=== PATIENT | female | born 1955 | race Caucasian/White ===

== ENCOUNTER 2022-06-19 12:22 | Emergency (ER) | payer MEDICARE, SELFPAY ==
[2022-06-19 12:27] VITALS: BP 146/83; PULSE 81; RESP 14; TEMP 36.4; O2SAT 99; BMI 18.8
--- NOTE | 2022-06-19 12:49 | CRLHL7_ITS ---
For Patients: As a result of the Century Cures Act, medical imaging exams and procedure reports are released immediately into your electronic medical record. You may view this report before your referring provider. If you have questions, please contact your health care provider. Indication: Head injury Comparison: None available Technique: Multiple sequential axial images from the foramen magnum to the vertex were obtained without IV contrast. Findings: No evidence of mass effect, midline shift, or extra-axial fluid collection. No evidence of space-occupying lesion or intracranial hemorrhage. No evidence of cortical-based area of infarction. Ventricles and sulci are appropriate for patient age. Basal cisterns are patent. Visualized portions of the orbits, paranasal sinuses, and mastoid air cells are unremarkable. Impression: No acute intracranial process. Please note that all CT scans at this facility use dose modulation, iterative reconstruction, and/or weight-based dosing when appropriate to reduce radiation dose to as low as reasonably achievable. Dictated by Christopher Suero MD @ 06/19/2022 1:42:47 PM (Electronically Signed)
--- NOTE | 2022-06-19 12:52 | ED_ITS ---
HPI - General Adult General Time Seen by Provider: 12:52 Date Seen: 06/19/22 Chief complaint: Head Injury/Pain Stated complaint: Hit head Time Seen by Provider: 06/19/22 12:22 Source: patient and family History of Present Illness HPI narrative: 58-year-old female presents to the emergency room after head injury. Yesterday about 4:00 a.m. in the afternoon she hit her left forehead against a doorknob. She is bending over to hook [place] to her dog and hit her head fairly hard when she was getting back up. She did not have loss of consciousness. She does have a headache in her left forehead. She has had nausea since that time but has not vomited. She has been able to eat. She does have some blurriness in her left eye which is chronic due to a left cataract. She reports prominent fatigue and just feeling off.Prior to hitting her head she was feeling fine yesterday. No previous history of head injury. She is not on any anticoagulation or antiplatelet treatment. She reports no other recent illness or injury. She denies other focal neurologic symptoms including numbness, weakness, tingling. No speech difficulties. Related Data Home Medications Medication Instructions Recorded Confirmed calcium carbonate 600 mg calcium 600 mg PO DAILY 06/19/22 06/19/22 (1,500 mg) tablet (Calcium) diltiazem HCl 120 mg 120 mg PO BID 06/19/22 06/19/22 capsule,extended release 24 hr potassium chloride 20 mEq 20 meq PO DAILY 06/19/22 06/19/22 tablet,extended release Allergies Allergy/AdvReac Type Severity Reaction Status Date / Time cephalexin Allergy Unknown Shortness Verified 06/19/22 12:41 of Breath ciprofloxacin Allergy Unknown Verified 06/19/22 12:41 codeine Allergy Unknown Verified 06/19/22 12:41 nitrofurantoin Allergy Unknown Verified 06/19/22 12:41 [From Macrobid] acetaminophen AdvReac Unknown Palpitation Verified 06/19/22 12:39 s levofloxacin [From Levaquin] AdvReac Unknown Nausea Verified 06/19/22 12:41 pseudoephedrine AdvReac Unknown Tachycardia Verified 06/19/22 12:41 sulfamethoxazole AdvReac Unknown Palpitation Verified 06/19/22 12:41 [From Septra] s trimethoprim [From Septra] AdvReac Unknown Palpitation Verified 06/19/22 12:41 s Review of Systems Narrative: She reports feeling well other than the issues above. She has a history of SVT but none recently. [facility] Medical History (Updated 06/19/22 @ 13:51 by Adolph Acevedo MD) Anxiety Hypertension Hypokalemia Osteoporosis Psoriasis SVT (supraventricular tachycardia) Surgical History History of salpingo-oophorectomy Family History (Updated 06/19/22 @ 12:59 by Adolph Acevedo MD) Other Alzheimer's dementia Coronary artery disease High blood pressure High cholesterol Hypokalemia Social History Smoking Status: Former smoker What tobacco products do you use: cigarettes Smoking quit date/years: >15 years ago How often do you have a drink containing alcohol: monthly or less AUDIT-C Alcohol total score: 1 Non-prescribed substance use: denies use Exam Narrative: Exam Narrative: She is alert and appears in no distress. She gives her own history. Speech is normal. Inspection of her head shows no obvious signs of trauma. She does have mild soft tissue swelling in her very lateral left forehead just adjacent to her left methodist. Palpation here is tender as well. I do not palpate a bony abnormality in this area. Palpation of the rest of her head is nontender. Neck is nontender. Pinnas external canals and TMs are normal. Eyes are normal. Pupils are equal round and reactive to light. Extraocular movements are full. Visual benton are intact. There is no facial asymmetry. Oropharynx is normal. Tongue is midline. Neck is supple without mass or adenopathy. Respirations are clear. Cardiovascular S1, S2, regular rate and rhythm. Strength testing in upper and lower extremities is full and symmetric bilaterally. She has 5/5 strength in shoulder flexion and extension, elbow flexion and extension, wrist flexion and extension, finger extension, [employer] supervisor strength bilaterally. She has 5/5 strength in hip flexion, knee flexion and extension, ankle dorsiflexion and plantar flexion. Vugghf-huxb-snidup is accurate. Const: Vital Signs, click to edit/add: Vital Signs - 24 hr 06/19/22 12:27 Temperature 97.6 F Pulse Rate [Pulse Oximeter] 81 Respiratory Rate 14 Blood Pressure [Ri ght Upper Arm] 146/83 H Pulse Oximetry 99 Oxygen Delivery Me thod Room Air Documenting provider has reviewed patient's vital signs: yes Course Course Hospital Course: Patient remained neurologically and symptomatically stable through the emergency department course Vital Signs Vital signs: Initial Vital Signs Temperature 97.6 F 06/19/22 12:27 Temperature Source Temporal Artery Scan 06/19/22 12:27 Pulse Rate 81 06/19/22 12:27 Pulse Rhythm 06/19/22 12:27 Respiratory Rate 14 06/19/22 12:27 Blood Pressure 146/83 H 06/19/22 12:27 Blood Pressure Mean 104 06/19/22 12:27 Blood Pressure Position Sitting 06/19/22 12:27 Pulse Oximetry 99 06/19/22 12:27 Oxygen Delivery Method 06/19/22 12:27 Vital Signs Temperature 97.6 F 06/19/22 12:27 Pulse Rate 81 06/19/22 12:27 Respiratory Rate 14 06/19/22 12:27 Blood Pressure 146/83 H 06/19/22 12:27 Pulse Oximetry 99 06/19/22 12:27 Oxygen Delivery Method 06/19/22 12:27 Temperature 97.6 F 06/19/22 12:27 Pulse Rate 81 06/19/22 12:27 Respiratory Rate 14 06/19/22 12:27 Blood Pressure 146/83 H 06/19/22 12:27 Pulse Oximetry 99 06/19/22 12:27 Oxygen Delivery Method 06/19/22 12:27 Medical Decision Making Differential Diagnosis Differential Diagnosis: Head trauma with intracranial hemorrhage, skull fracture, concussion Discharge Plan Discharge Clinical Impression: Concussion without loss of consciousness Additional Instructions: Resume activity as tolerated. You are most likely to be symptomatic with vigorous exercise such as pickle ball. Gradually resume vigorous activity to see if you tolerated. Your symptoms should improve over the next week. If you are not back to normal in 1 week you should see your doctor for recheck Activity Level: Activity as Tolerated Discharge Diet: Regular Prescriptions: No Action diltiazem HCl 120 mg capsule,extended release 24hr 120 mg PO BID Label Comments: TAKE 1 CAPSULE (120 MG) BY MOUTH 2 TIMES DAILY. potassium chloride 20 mEq tablet extended release 20 meq PO DAILY Label Comments: TAKE 1 TABLET (20 MEQ) BY MOUTH ONCE DAILY WITH A MEAL. calcium carbonate [Calcium 600] 600 mg calcium (1,500 mg) tablet 600 mg PO DAILY Follow Up/Referrals: Provider,Not a Local [Primary Care Provider] - Stand Alone Forms: [facility] Info Instructions
== END 2022-06-19 14:06 | disposition home or self-care (01) ==
PROVIDERS: Emergency Provider Family Medicine
DX: S06.0X0A Concussion without loss of consciousness, initial encounter (principal); S02.91XA Unspecified fracture of skull, initial encounter for closed fracture; W22.8XXA Striking against or struck by other objects, initial encounter
CPT/HCPCS: 70450; 99283

== ENCOUNTER 2022-07-07 12:53 | Emergency (ER) | payer MEDICARE, SELFPAY ==
[2022-07-07 13:06] VITALS: BP 155/98; PULSE 101; RESP 20; TEMP 36.8; O2SAT 96; BMI 18.8
[2022-07-07] MEDS: 0.9 % SODIUM CHLORIDE 1000 ml 1,000 ML IV (13:40)
[2022-07-07 13:48] LABS: Basophils Percent Auto 0.3 % (0.0-3.0); Eosinophils Percent Auto 0.5 % (0.0-7.0); Hematocrit 41.4 % (33.0-51.0); Hemoglobin* 13.6 gm/dL (12.0-16.0); Immature Granulocytes Abs Auto 0.02 K/uL (0.00-0.30); Lymphocytes Percent Auto 10.3 % (20-44); Mean Corpuscular HGB Conc 33 gm/dL (32-36); Mean Corpuscular Hemoglobin 29 pg (26-34); Mean Corpuscular Volume 88 fL (80-100); Monocytes Percent Auto 8.7 % (0.0-11.0); Platelet Count* 393 K/uL (140-440); Red Blood Count 4.73 m/uL (4.00-5.20); White Blood Count* 11.01 K/uL (4.50-11.00)
--- NOTE | 2022-07-07 13:52 | ED_ITS ---
HPI - General Adult General Date Seen: 07/07/22 Chief complaint: Sore Throat Stated complaint: Food poisoning/sore throat Time Seen by Provider: 07/07/22 13:10 Source: patient, family and RN notes reviewed Mode of arrival: ambulatory Limitations: no limitations History of Present Illness HPI narrative: Brooke is a 60-year-old female coming to the ER at request of her clinic for concern of possible dehydration. She has not been feeling very well and has had multitude of symptoms recently. What ultimately he was getting her to go to the clinic today was some sore throat and voice hoarseness as well as concern for food poisoning with diarrhea. As far as her respiratory symptoms, she has been sick for a couple of weeks, had cough and cold symptoms, had a harsh cough. She thinks she may have ultimately gotten it from a granddaughter. She was doing better but then Monday up in [facility] she started feeling worse. Seems like the cough was worsening, sore throat for worsening and voice hoarseness worsening. She does endorse postnasal drainage. She does not necessarily have a fever with that. She does have a history of seasonal allergies and has Flonase but has not really been using it consistently with this. On Monday up in [place], they stopped at [employer] and almost immediately after eating, she developed diarrhea. She has had diarrhea through the night. Last episode maybe 10:00 a.m. this morning. There is a little blood on her underwear once but overall no gross bloody diarrhea. They were worried about E coli thinking this might be food poisoning. Related Data Home Medications Medication Instructions Recorded Confirmed calcium carbonate 600 mg calcium 600 mg PO DAILY 06/19/22 07/07/22 (1,500 mg) tablet (Calcium) diltiazem HCl 120 mg 120 mg PO BID 06/19/22 07/07/22 capsule,extended release 24 hr potassium chloride 20 mEq 20 meq PO DAILY 06/19/22 07/07/22 tablet,extended release Allergies Allergy/AdvReac Type Severity Reaction Status Date / Time cephalexin Allergy Unknown Shortness Verified 07/07/22 13:19 of Breath ciprofloxacin Allergy Unknown Verified 07/07/22 13:19 codeine Allergy Unknown Verified 07/07/22 13:19 nitrofurantoin Allergy Unknown Verified 07/07/22 13:19 [From Macrobid] acetaminophen AdvReac Unknown Palpitation Verified 07/07/22 13:19 s levofloxacin [From Levaquin] AdvReac Unknown Nausea Verified 07/07/22 13:19 pseudoephedrine AdvReac Unknown Tachycardia Verified 07/07/22 13:19 sulfamethoxazole AdvReac Unknown Palpitation Verified 07/07/22 13:19 [From Septra] s trimethoprim [From Septra] AdvReac Unknown Palpitation Verified 07/07/22 13:19 s [facility] Medical History (Updated 07/07/22 @ 15:05 by Frances Aguilar MD) Anxiety Hypertension Hypokalemia Osteoporosis Psoriasis SVT (supraventricular tachycardia) Surgical History History of salpingo-oophorectomy Family History (Updated 06/19/22 @ 12:59 by Adolph Acevedo MD) Other Alzheimer's dementia Coronary artery disease High blood pressure High cholesterol Hypokalemia Social History (Updated 06/19/22 @ 13:51 by Adolph Acevedo MD) Smoking Status: Former smoker What tobacco products do you use: cigarettes Smoking quit date/years: >15 years ago How often do you have a drink containing alcohol: monthly or less AUDIT-C Alcohol total score: 1 Non-prescribed substance use: denies use Exam Const: Vital Signs, click to edit/add: Vital Signs - 24 hr 07/07/22 13:06 Temperature 98.2 F Pulse Rate [Pulse Oximeter] 101 H Respiratory Rate 20 Blood Pressure [Le ft Upper Arm] 155/98 H Pulse Oximetry 96 Documenting provider has reviewed patient's vital signs: yes Common normals: no apparent distress, oriented x3, no limitations, healthy appearing, alert and well nourished General appearance: cooperative, comfortable and well kempt Nutritional appearance: thin HENMT: Common normals: normocephalic, head/scalp atraumatic, hearing grossly normal bilaterally, external ears normal, EAC's normal, TM's normal bilaterally (maybe slight fluid behind the right tympanic membrane but no infection), external nose normal, nasal mucous membranes and turbinates normal, moist oral mucous membranes, oropharynx normal, dentition normal and gingiva normal Head and scalp: normocephalic and atraumatic Nose: external nose normal and nasal mucous membranes and turbinates normal External ear: external ears normal External auditory canal: EAC's normal Tympanic membrane: TM's normal bilaterally (maybe slight fluid behind the right tympanic membrane but no infection) Throat: posterior oropharynx normal and uvula midline Other: Able speak in complete sentences but voice is hoarse Eye: Common normals: PERRL, EOMs intact bilaterally, conjunctivae normal and no scleral icterus Conjunctiva: conjunctiva(e) normal Pupil: PERRL Neck & C-Spine: Common normals: full ROM, no lymphadenopathy, supple, no meningeal signs, no JVD and thyroid normal Thyroid: thyroid normal Resp: Common normals: normal respiratory effort, no retractions, no use of accessory muscles and clear to auscultation bilaterally Auscultation: clear to auscultation bilaterally Cardio: Common normals: no JVD, regular rate, regular rhythm, S1 normal heart sound, S2 normal heart sound, no gallops, no clicks and no murmurs Rate: regular rate Rhythm: regular rhythm Heart sounds: S1 normal and S2 normal GI: Common normals: Normal to inspection, nondistended, normoactive bowel sounds present, soft to palpation, non-tender, no hepatosplenomegaly and no masses Palpation: soft and no hepatosplenomegaly Neuro: Common normals: oriented x3 Sensorium/orientation: alert Meningeal signs: no meningeal signs Psych: Appearance: well kempt Course Course Hospital Course: We will initiate IV fluids, get basic labs for patient. I do not think she needs any imaging. Respiratory symptoms could be viral, could be allergic. Have discussed doing chest x-ray and sinus imaging with a CT. She does not feel like she needs this and thus will not order. I do support her decision to not do imaging based on her clinical exam. We did discuss the concern for definite food-borne illness here with the diarrhea. If it is something like E coli or community acquired C difficile, antibiotics would not be recommended to be initiated and could actually worsenen things. She has not been on any recent antibiotics and no history of C difficile colitis but it is still possible to pick this up in the environment. Antibiotic certainly could worsen any diarrheal illness. Reevaluation(s) Reevaluation #1: Have reviewed with patient her labs and went over them. Her white count is minimally elevated, C reactive protein elevated. Electrolytes are looking good. She did have to urinate after the L of fluid and did have a watery diarrheal stool. Did again stress that I think we need to refrain from antibiotics at this time. For her laryngitis and sinus type symptoms, recommend initiating Flonase and Zyrtec or Claritin daily to treat for possible allergen induced symptoms. We did discuss testing for COVID and influenza and she would like to have this done. We will do this on her way out to notify her if they come back positive. We will send her with stool collection studies. Time: 15:02 Vital Signs Vital signs: Initial Vital Signs Temperature 98.2 F 07/07/22 13:06 Temperature Source Temporal Artery Scan 07/07/22 13:06 Pulse Rate 101 H 07/07/22 13:06 Respiratory Rate 20 07/07/22 13:06 Blood Pressure 155/98 H 07/07/22 13:06 Blood Pressure Mean 117 07/07/22 13:06 Blood Pressure Position Sitting 07/07/22 13:06 Pulse Oximetry 96 07/07/22 13:06 Vital Signs Temperature 98.2 F 07/07/22 13:06 Pulse Rate 101 H 07/07/22 13:06 Respiratory Rate 20 07/07/22 13:06 Blood Pressure 155/98 H 07/07/22 13:06 Pulse Oximetry 96 07/07/22 13:06 Temperature 98.2 F 07/07/22 13:06 Pulse Rate 101 H 07/07/22 13:06 Respiratory Rate 20 07/07/22 13:06 Blood Pressure 155/98 H 07/07/22 13:06 Pulse Oximetry 96 07/07/22 13:06 Medical Decision Making Lab Data Lab results reviewed: Yes I reviewed the patient's lab results Labs: Lab Results 07/07/22 07/07/22 Range/Units 13:36 13:36 WBC 11.01 H (4.50-11.00) K/uL RBC 4.73 (4.00-5.20) m/uL Hgb 13.6 (12.0-16.0) gm/dL Hct 41.4 (33.0-51.0) % MCV 88 (80-100) fL MCH 29 (26-34) pg MCHC 33 (32-36) gm/dL RDW Coeff of Jeny 13.0 (11.5-15.5) % Plt Count 393 (140-440) K/uL Neut % (Auto) 80.0 H (42.0-72.0) % Lymph % (Auto) 10.3 L (20-44) % [place] % (Auto) 8.7 (0.0-11.0) % Eos % (Auto) 0.5 (0.0-7.0) % Baso % (Auto) 0.3 (0.0-3.0) % Neut # (Auto) 8.80 H (1.7-7.0) K/uL Lymph # (Auto) 1.10 (0.90-2.90) K/uL [place] # (Auto) 1.00 H (0.00-0.90) K/UL Eos # (Auto) 0.10 (0.00-0.50) K/uL Baso # (Auto) 0.00 (0.00-0.30) K/uL Abs Immat Gran (auto) 0.02 (0.00-0.30) K/uL Sodium 138 (135-149) mmol/L Potassium 3.6 (3.6-5.1) mmol/L Chloride 102 (96-114) mmol/L Carbon Dioxide 27 (20-32) mmol/L BUN 7 (7-30) mg/dL Creatinine 0.5 (0.5-1.5) mg/dL Estimated Creat Clear 46.27 Estimated GFR 102 ml/min Glucose 104 (60-115) mg/dL Calcium 9.3 (8.4-10.6) mg/dL C-Reactive Protein 3.9 H (0.5-1.0) mg/dL Critical Care Time Critical Care Time Critical Care Time: No Discharge Plan Discharge Clinical Impression: Laryngitis, Acute diarrhea Condition: Stable Instructions: Laryngitis (ED), Acute Diarrhea (ED), Nutrition Tips for Relief of Diarrhea (ED) Additional Instructions: For your sore throat, hoarse voice and sinus symptoms, do recommend initiating your Flonase that you have at home. Would also recommend trialing Zyrtec or Claritin daily. I do not recommend starting antibiotics in the setting of this acute diarrhea. For the diarrhea, do not recommend antidiarrheals at this time as it can allow infectious agents to actually stay with in the colon/gut. Follow the handout on nutrition tips, do recommend small frequent sips of clear liquids to stay hydrated while you are awake. Collect the stool studies and bring back. If you are worsening from either ear symptoms, develops severe abdominal pain, acute bloody diarrhea, fever or vomiting, do need to be re- evaluated. Activity Level: Activity as Tolerated Diet Detail: Follow handout Prescriptions: No Action diltiazem HCl 120 mg capsule,extended release 24hr 120 mg PO BID Label Comments: TAKE 1 CAPSULE (120 MG) BY MOUTH 2 TIMES DAILY. potassium chloride 20 mEq tablet extended release 20 meq PO DAILY Label Comments: TAKE 1 TABLET (20 MEQ) BY MOUTH ONCE DAILY WITH A MEAL. calcium carbonate [Calcium 600] 600 mg calcium (1,500 mg) tablet 600 mg PO DAILY Follow Up/Referrals: Mono Garcia MD [Primary Care Provider] - Stand Alone Forms: [facility] Info Instructions
[2022-07-07 13:54] LABS: Slide Review Reflex No
[2022-07-07 14:02] LABS: Chloride* 102 mmol/L (96-114); Potassium* 3.6 mmol/L (3.6-5.1); Sodium* 138 mmol/L (135-149)
[2022-07-07 14:05] LABS: Carbon Dioxide* 27 mmol/L (20-32); Creatinine* 0.5 mg/dL (0.5-1.5); Est. Creatinine Clearance* 46.27; Estimated Glomerular Filt Rate 102 ml/min
[2022-07-07 14:06] LABS: Blood Urea Nitrogen* 7 mg/dL (7-30); Calcium* 9.3 mg/dL (8.4-10.6); Glucose* 104 mg/dL (60-115)
[2022-07-07 14:08] LABS: C Reactive Protein* 3.9 mg/dL (0.5-1.0)
[2022-07-07 16:17] LABS: PCR FLU A Negative PCR FLU A (Negative); PCR FLU B Negative PCR FLU B (Negative)
[2022-07-07 16:22] LABS: SARS PCR* Negative SARS-CoV-2 (Negative)
== END 2022-07-07 15:36 | disposition home or self-care (01) ==
PROVIDERS: Emergency Provider Family Medicine; PCP Family Medicine
DX: R19.7 Diarrhea, unspecified (principal); J04.0 Acute laryngitis
CPT/HCPCS: 36415; 80048; 85025; 86140; 87631; 96360; 99284; J7030

== ENCOUNTER 2022-07-09 09:12 | Outpatient (REF) | payer MEDICARE, SELFPAY ==
[2022-07-09 10:35] LABS: C.Difficile Negative (Negative); CDIFFEPI 027 Presumptive Negative (Negative)
[2022-07-18 23:31] LABS: Ova and Parasite, Fecal Negative (Negative)
== END 2022-07-09 09:13 | disposition home or self-care (01) ==
LOC: NPINS 09:12
PROVIDERS: PCP Family Medicine; Visit Provider Family Medicine
DX: Z20.822 Contact with and (suspected) exposure to COVID-19 (principal); R19.7 Diarrhea, unspecified
CPT/HCPCS: 87045; 87046; 87177; 87209; 87427; 87493

== ENCOUNTER 2022-08-13 15:39 | Emergency (ER) | payer MEDICARE, SELFPAY ==
[2022-08-13 15:49] VITALS: BP 178/88; PULSE 100; TEMP 37.1; O2SAT 96; BMI 18.3
--- NOTE | 2022-08-13 16:27 | CRLHL7_ITS ---
For Patients: As a result of the Cures Act, medical imaging exams and procedure reports are released immediately into your electronic medical record. You may view this report before your referring provider. If you have questions, please contact your health care provider. INDICATION: Fall. COMPARISON: None. TECHNIQUE: Three views of the right wrist. FINDINGS: No focal soft tissue abnormality. Normal alignment. Joint space preserved. No fracture. IMPRESSION: No acute fracture or malalignment. Dictated by Josh Rojas MD @ 08/13/2022 5:12:39 PM (Electronically Signed)
--- NOTE | 2022-08-13 16:28 | ED.GENADULT ---
HPI - General Adult General Chief complaint: Fall/Minor Trauma Stated complaint: Right wrist injury Time Seen by Provider: 08/13/22 15:58 History of Present Illness HPI narrative: This 66-year-old female was playing pickle ball and fell onto her outstretched right hand. She has pain in her right wrist. She did not report any other injury. She did not hit her head or have loss of consciousness. Related Data Home Medications Medication Instructions Recorded Confirmed calcium carbonate 600 mg calcium 600 mg PO DAILY 06/19/22 07/07/22 (1,500 mg) tablet (Calcium) diltiazem HCl 120 mg 120 mg PO BID 06/19/22 07/07/22 capsule,extended release 24 hr potassium chloride 20 mEq 20 meq PO DAILY 06/19/22 07/07/22 tablet,extended release Allergies Allergy/AdvReac Type Severity Reaction Status Date / Time cephalexin Allergy Unknown Shortness Verified 07/07/22 13:19 of Breath ciprofloxacin Allergy Unknown Verified 07/07/22 13:19 codeine Allergy Unknown Verified 07/07/22 13:19 nitrofurantoin Allergy Unknown Verified 07/07/22 13:19 [From Macrobid] acetaminophen AdvReac Unknown Palpitation Verified 07/07/22 13:19 s levofloxacin [From Levaquin] AdvReac Unknown Nausea Verified 07/07/22 13:19 pseudoephedrine AdvReac Unknown Tachycardia Verified 07/07/22 13:19 sulfamethoxazole AdvReac Unknown Palpitation Verified 07/07/22 13:19 [From Septra] s trimethoprim [From Septra] AdvReac Unknown Palpitation Verified 07/07/22 13:19 s Review of Systems Status of ROS: Reports: 10 or more systems reviewed and unremarkable except as noted in History and below Narrative: Constitutional: No fevers, no weight gain or loss. Eyes: No discharge. No vision changes. HENT: No congestion, no sore throat, no ear pain. Cardiovascular: No chest pain, no palpitations. Respiratory: No shortness of breath, no wheezes, no cough. Gastrointestinal: No abdominal pain, no vomiting, no diarrhea. Genitourinary: No dysuria, no hematuria. Musculoskeletal: Right wrist injury as described above. Skin: No rashes, no pruritis. Neurological: No dizziness, weakness, sensory change, speech change. Endo/Heme/Allergies: No bruising or bleeding. No polydipsia. Pysch: no suicidality, no anxiety, no insomnia. All other systems reviewed and are negative. [facility] Medical History (Updated 08/13/22 @ 17:20 by Yifan Cisneros MD) Anxiety Hypertension Hypokalemia Osteoporosis Psoriasis SVT (supraventricular tachycardia) Surgical History History of salpingo-oophorectomy Family History (Updated 06/19/22 @ 12:59 by Adolph Acevedo MD) Other Alzheimer's dementia Coronary artery disease High blood pressure High cholesterol Hypokalemia Social History (Updated 06/19/22 @ 13:51 by Adolph Acevedo MD) Smoking Status: Former smoker What tobacco products do you use: cigarettes Smoking quit date/years: >15 years ago How often do you have a drink containing alcohol: monthly or less How often do you have six or more drinks on one occasion: Never AUDIT-C Alcohol total score: 1 Non-prescribed substance use: denies use Exam Narrative: Exam Narrative: Constitutional: Well-developed, well-nourished, no acute distress. HEENT: Normocephalic, atraumatic. Neck: Normal range of motion. Nontender. Supple. Heart: Intact distal pulses. Lungs: No chest discomfort. No wheezes, rhonchi, or rales. Abdomen: Nontender. Back: Normal range of motion. Extremities: Diffuse left wrist pain with minimal swelling and associated decreased range of motion. There is no obvious deformity. Skin: Intact. No rash. Warm. No erythema or pallor. Neurologic: No altered sensation. No weakness. Alert and oriented. Psychiatric: No suicidality. No anxiety or depression. No insomnia. Nursing notes and vitals signs are reviewed. Const: Vital Signs, click to edit/add: Vital Signs - 24 hr 08/13/22 15:49 Temperature 98.7 F Pulse Rate [Left P ulse Oximeter] 100 Blood Pressure [Ri ght Upper Arm] 178/88 H Pulse Oximetry 96 Oxygen Delivery Me thod Room Air Course Vital Signs Vital signs: Initial Vital Signs Temperature 98.7 F 08/13/22 15:49 Temperature Source Temporal Artery Scan 08/13/22 15:49 Pulse Rate 100 08/13/22 15:49 Blood Pressure 178/88 H 11/19/22 15:49 Blood Pressure Mean 118 08/13/22 15:49 Blood Pressure Position Sitting 08/13/22 15:49 Pulse Oximetry 96 08/13/22 15:49 Oxygen Delivery Method 08/13/22 15:49 Vital Signs Temperature 98.7 F 08/13/22 15:49 Pulse Rate 100 08/13/22 15:49 Blood Pressure 178/88 H 08/13/22 15:49 Pulse Oximetry 96 08/13/22 15:49 Oxygen Delivery Method 08/13/22 15:49 Temperature 98.7 F 08/13/22 15:49 Pulse Rate 100 08/13/22 15:49 Blood Pressure 178/88 H 08/13/22 15:49 Pulse Oximetry 96 08/13/22 15:49 Oxygen Delivery Method 08/13/22 15:49 Medical Decision Making MDM Narrative Medical decision making narrative: This patient comes in with injury to her right wrist. X-ray images show no sign of fracture or dislocation. The patient received a wrist splint and is encouraged to increase activity as tolerated. Imaging Data XR R Wrist: Radiologist's impression: No acute fracture or malalignment. Discharge Plan Discharge Clinical Impression: Right wrist sprain Patient Disposition: Home, Self-Care Condition: Stable Additional Instructions: Wear splint as needed. Use [id number] medicines as needed and directed. Follow up with MD or return if worsening. Prescriptions: No Action diltiazem HCl 120 mg capsule,extended release 24hr 120 mg PO BID Label Comments: TAKE 1 CAPSULE (120 MG) BY MOUTH 2 TIMES DAILY. potassium chloride 20 mEq tablet extended release 20 meq PO DAILY Label Comments: TAKE 1 TABLET (20 MEQ) BY MOUTH ONCE DAILY WITH A MEAL. calcium carbonate [Calcium 600] 600 mg calcium (1,500 mg) tablet 600 mg PO DAILY Follow Up/Referrals: Mono Garcia MD [Primary Care Provider] - Stand Alone Forms: [employer] Info Instructions
== END 2022-08-13 17:29 | disposition home or self-care (01) ==
PROVIDERS: Emergency Provider Emergency Medicine Emergency Medical Services; PCP Family Medicine
DX: S63.501A Unspecified sprain of right wrist, initial encounter (principal); Y93.73 Activity, racquet and hand sports
CPT/HCPCS: 29125; 73110; 99283; 99284

== ENCOUNTER 2023-08-10 10:57 | Outpatient (RCR) | payer MEDICARE, SELFPAY | END 2023-09-29 14:40 | disposition home or self-care (01) | PROVIDERS: PCP Family Medicine; Visit Provider Dietitian, Registered | DX: M25.561 Pain in right knee (principal); M25.562 Pain in left knee; M62.81 Muscle weakness (generalized); Z51.89 Encounter for other specified aftercare | CPT/HCPCS: 97110; 97161 ==

== ENCOUNTER 2025-02-02 10:26 | Emergency (ER) | payer BC, SELFPAY ==
--- OUTSIDE RECORDS SUMMARY | 2025-02-02 10:28 | XMS_ITS ---
Author Name Interface, [employer] Address [address] [address] [facility] Address [address] [address] Care Team Providers Care Physician/Internist Name Role Phone Shey Lowery Unavailable Unavailable Allergies and Adverse Reactions Medication/Group Name Reaction Severity Date Allerfed (pseudoephedrine) 0 11/28/2022 cephalexin 11/28/2022 codeine 11/28/2022 Septra 11/28/2022 acetaminophen 11/28/2022 Macrobid 11/28/2022 ciprofloxacin 11/28/2022 levofloxacin 11/28/2022 Plan Date Type Value 12/20/2022 APPOINTMENT POST OP 30 MIN 12/12/2022 APPOINTMENT SURGERY 2 HR 12/02/2022 APPOINTMENT LAB 10 MIN 12/02/2022 APPOINTMENT NEW PT CONSULT 6 0 MIN 11/29/2022 APPOINTMENT NEW PT CONSULT 6 0 MIN 11/29/2022 APPOINTMENT LAB 10 MIN Reason for Visit POST OP 30 MIN Encounters Date Name 11/29/2022 Anxiety disorder 11/29/2022 Chronic sinusitis 11/29/2022 Elevated CA 125 11/29/2022 Essential HTN 11/29/2022 Hypokalemia 11/29/2022 Osteoporosis 11/29/2022 PUD 11/29/2022 Pelvic mass 11/29/2022 Psoriasis 11/29/2022 SVT Immunizations Date Name Route Dose Instructions Refusal Reason Stat us Flu vaccine - Adult Comp leted Other Completed Medications Date Name Route Dose Frequency Instructions Start Date End Date Status Diltiazem Oral 24 hr Cap active Ketoconazole Shampoo 1 % 2-3 times a week a ctive Alprazolam Oral max 3 tabs per day active Calcium Carbonate Oral active Conjugated Estrogens Vaginal Cream 0.625 mg/g twice weekly active Tacrolimus Topical Ointment 0.1 % QD to eyelid active Problems Diagnosis Status Date of Diagnosi s Pelvic mass Active Elevated CA 125 Active PUD Active Essential HTN Active Chronic sinusitis Active Anxiety disorder Active Hypokalemia Active Osteoporosis Active SVT Active Psoriasis Active Vital Signs Date Type Value 11/29/2022 Heart Beat 93.00 11/29/2022 Oxygen Saturation 97.00 11/29/2022 Body Temperature 98.70 11/29/2022 Respiratory Rate 16.00 11/29/2022 Intravascular Systolic 136 11/29/2022 Intravascular Diastolic 74 11/29/2022 Weight 115.00 11/29/2022 Height 67.20 11/29/2022 BMI 17.90 11/29/2022 BSA 1.60 11/29/2022 Pain Scale 0.00 Notes Section * [employer]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 Patient ? Referring Physician: Kirill Davis MD?? Primary GYNOncologist: Shey Lowery (Gynecological/Oncology) Date of Service: 11/29/2022?? Reason for Consult: I was asked by Dr. Davis to see Brooke Johnson in regard to a recent diagnosis of a pelvic massand elevated CA 125. History of Present Illness (Cash Posting Representative Oncology): 67 y.o. * 11/19/22 Evaluated in ED in ID??for abdominal pain.?? CT A/P:?? Large 9 x 8.1 x 5 cm multi-cystic partially calcified right adnexal mass.?? Trace right nadeen- adnexal fluid * 11/23/22 PUS:?? Uterus 6.6 x 3.4 x 2.4 cm with hypoechoic area with vascularity in left SHELLEY measuring2.5 x 1.2 x 1.1 cm.?? Endometrial thickness 2 mm.?? Right ovary 10.2 x 9.8 x 8.3cm containing solidand cystic lesion with vascularity measuring 4.9 x 4.5 x 3.6 cm.?? Simple cyst measuring 6 x 5.8 x 4.8 cm also present.?? Simple cystic structure in left adnexal region measuring 2.7 x 1.8 x 1.4 cm.?? Small amount of free fluid in cul de sac. * 11/23/22 CA 125 = 177 U/mL * 11/23/[address] Kirill Davis for pelvic mass.?? Adnexal mass palpable on examination. Genetic Testing ([employer] Post[employer] Representative Oncology): Review of Systems:\ See intake ROS sheet.?? Positive for abnormal mammogram, 8 lbs wgt loss, diminished energy, loss ofappetite, dry eyes, irregular heart beats and heart pounding, frequent heartburn, nausea, change inbowel habits, muscle cramping, anxious. 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 Family History: Mother with Alzheimer's disease, HTN Father with CAD/AL Sister with multiple sclerosis Brother with HTN, hyperlipidemia, melanoma Son with?? HTN Social History: to , Tiago.?? Three children.?? Retired [employer].?? Former smoker 9 pk years - quit 1979.?? Occasional alcohol. Health Maintenance: Vital Signs: Blood pressure: 136/74, Pulse: 93, Temperature: 98.7 F, Respirations: 16, O2 sat: 97%, Pain Scale: 0, Height: 67.2 in, Weight: 115 lb, BSA: 1.6, BMI: 17.9 kg/m2?? Physical Exam (C[employer] Posting Representative Oncology): General:?? Pleasant, thin, , female sitting in NAD HEENT:?? AT/NC LN:?? Normal Back:?? Non-tender Lungs:?? Clear to auscultation Cardiac:?? RRR S1 S2 without murmur Abdomen:?? Soft, mild tenderness RLQ?? with minimal rebound on palpation, no masses palpated Extremities:?? No LE edema Pelvic:?? Normal external genitalia, normal vagina and cervix, uterus with solid irregular mass posteriorly - feels attached to the uterus.?? Firm and solid mass on left side as well.?? No other pelvic nodularity noted. Laboratory Data: ? Imaging: PUS and CT A/P reviewed Problems: * Anxiety disorder * Chronic sinusitis * Elevated CA 125 * Essential HTN * Hypokalemia * Osteoporosis * PUD * Pelvic mass * Psoriasis * SVT Assessment & Plan (Cash Posting Representative Oncology): 67 y.o. with bilateral adnexal masses, pelvic pain and elevated CA 125.?? I discussed with that patient and her , Tiago, that this could represent benign, borderline or malignant tumors of the ovary.?? I am recommending proceeding with Robotic assisted laparoscopic right salpingo-oophorectomy, possible left oophorectomy, possible hysterectomy, possible staging, possible laparotomy.?? Risks of surgery and anticipated recovery discussed as well.?? All questions answered. Total time 45 min spent on review of outside records and images, charting, face to face examinationand discussion, decision for surgery. Pain Care Management: Pain Scale: 0 Patient Care needs: Depressions Status: Not recorded on visit Smoking Status: Smoking Tobacco : none found; Smokeless Tobacco : none found; Vaping : none found Aislinn Lowery MD Copy to:??FAX Mono Davis MD (Referring) ?? 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
--- OUTSIDE RECORDS SUMMARY | 2025-02-02 10:28 | XMS_ITS | Clinical Summary ---
Author Organization [facility] Address [address] [place] [address] Care Team Providers Care Pipe Wrapping Machine Operator Name Role Phone Elsewhere, Pcp Primary Care Provider Unavailabl e Source Comments Patient records contain information from all sites at [facility]. For routine questions regarding patient records, call [phone] during business hours, M-F 8:00 AM - 5:00 PM Central Time. Record requests for emergency care only can be directed to [phone] at any time.[facility] Allergies Active Allergy Reactions Criticality Noted Date Comments Acetaminophen Palpitations Low 11/26/2009 Diphenhydramine Hcl Palpitations 12/29/2022 Cephalexin Shortness of breath (Reselect Reaction) High 07/09/2010 Has used amoxil Ciprofloxacin Palpitations 07/29/2014 States it messes with her P wave in her heart. States it messes with her P wave in her heart. States it messes with her P wave in her heart. States it messes with her P wave in her heart. Codeine Shortness of breath (Reselect Reaction) 06/28/2010 Lactase GI intolerance 11/27/1999 Levofloxacin Nausea Only,Other (see comments) 06/28/2010 Nitrofurantoin Shortness of breath (Reselect Reaction) High 08/24/2014 Other reaction(s): *Unknown Flu - like symptoms Pseudoephedrine Palpitations 06/28/2010 Other reaction(s): Tachycardia Sulfamethoxazole-Trimet hoprim Palpitations Low 08/27/2014 Medications * This document contains information received from the source organization and may not represent a complete record from that organization. dilTIAZem CD (CARDIZEM CD/CARTIA XT) 120 mg 24 hr capsule Take 120 mg by mouth. 2 times per day Active amoxicillin (AMOXIL) 500 mg capsule as needed. 2 Active fluticasone propionate (FLONASE) 50 mcg/actuation nasal spray Administer 2 sprays into nostril(s) as needed. 9 Active potassium chloride (K-TAB) 20 mEq CR tablet Take 10 mEq by mouth. Takes occasionally 3 Active ketoconazole (NIZORAL) 2 % shampoo as needed. 2 Active calcium phosphate trib/vit D3 (CITRACAL + D3, CALCIUM PHOS, ORAL) Take 1 tablet by mouth daily. Active ALPRAZolam (XANAX) 0.5 mg tablet Take 1 tablet (0.5 mg total) by mouth 3 (three) times a day as needed for anxiety. Do not take alprazolam within 4 hours of opioids (hydromorphone, oxycodone) administration. Taking these medications together increases the risk of severe drowsiness/sedati on, falls, and difficulty breathing. 30 tablet 3 Active ibuprofen (ADVIL,MOTRIN) 200 mg tablet Take 1 tablet (200 mg total) by mouth every 6 (six) hours as needed for pain. After you are done with hydromorphone and no longer requiring it for pain, begin to taper off of ibuprofen as you are able to. 3 Active acyclovir (ZOVIRAX) 5 % ointment Apply topically 6 (six) times a day for 7 days. Apply to genital area. 15 g 1 3 Active Additional Information Patient taking differently:topicalAs needed, Apply to genital area., Reported on 08/14/2023 acyclovir (ZOVIRAX) 400 mg tablet Take 1 tablet (400 mg total) by mouth 3 (three) times a day for 5 days. 15 tablet 3 Active Additional Information Patient taking differently:400 mg oralAs needed, Reported on 10/03/2024 tacrolimus-tiara cinamide 0.1-4 % ointment TACROLIMUS TOPICAL OINTMENT 0.1 % QD TO EYELID ACTIVE Active cholecalcifero l, vitamin D3, (cholecalcifer ol) 25 mcg (1,000 Unit) tablet Take 25 mcg by mouth daily. 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 Malignant Neoplasm Of Ovary Right (HCC) (Primary Dx) 01/02/2025 8:41 AM CDT - 01/02/2025 11:59 PM CDT Hospital Encounter Department of Laboratory Medicine and Pathology, [facility], in [place], [place] [address] [place] [address] Yohana Lopez APRN, C.N.P., M.S.N. Malignant Neoplasm Of Ovary Right (HCC) Discharge Disposition: Home or Self Care from Last 3 Months Family History Medical History Relation Name Comments Melanoma Brother Dennis Gallegos Coronary artery disease Father Byron Anxiety disorder Mother Margarita Dementia Mother Margarita Alzheimer s Depression Mother Margarita Hypertension Mother Margarita Skin cancer Mother Margarita Anxiety disorder Son Nishant Johnson Depression Son Nishant Johnson Psychiatric Son Nishant Johnson Relation Name Status Comments Brother Dennis Matthews Mother Margarita Son Nishant Johnson Social History Tobacco Use Types Packs/Day Years Used Date Smoking Tobacco: Former Cigarettes 1 8.2 0 09/25/1971 - 11/24/1979 Smokeless Tobacco: Never Tobacco Cessation:Counseling Given: Not Answered Alcohol Use Standard Drinks/Week Comments Yes 1 (1 standard drink = 0.6 oz pur e alcohol) Rarely drink 1x a month Humiliation, Afraid, Rape, and Kick questionnair e Answer Date Recorded Within the last year, have y ou been afraid of your partner or ex-partner? No 11/29/2022 Within the last year, have y ou been humiliated or emotionally abused in other ways by your partner or ex-partner? No Within the last year, have y ou been kicked, hit, slapped, or otherwise physically hurt by your partner or ex-partner? No 11/29/2022 Within the last year, have y ou been raped or forced to have any kind of sexual activity by your partner or ex-partner? No 11/29/2022 Social Connection and Isolat ion Panel [NHANES] Answer Date Recorded In a typical week, how many times do you talk on the phone with family, friends, or neighbors? More than three times a week 11/29/2022 How often do you get togethe r with friends or relatives? Three times a week 11/29/2022 How often do you attend chur or faith services? More than 4 times per year 11/29/2022 Do you belong to any clubs o r organizations such as voodoo groups, unions, fraternal or athletic groups, or school groups? No 11/29/2022 How often do you attend meet ings of the clubs or organizations you belong to? Patient declined 11/29/2022 Are you , , di vorced, , never , or living with a partner? 11/29/2022 AUDIT-C Answer Date Recorded Q1: How often do you have a drink containing alc ohol? 2-4 times a month 11/29/2022 Q2: How many drinks containi ng alcohol do you have on a typical day when you are drinking? 1 or 2 11/29/2022 Q3: How often do you have si x or more drinks on one occasion? Never 11/29/2022 Overall Financial Resource Strain (CARDIA) Answe r Date Recorded How hard is it for you to pa y for the very basics like food, housing, medical care, and heating? Not hard at all 11/29/2022 [facility] of Occupat ional Health - Occupational Stress Questionnaire Answer Date Recorded Do you feel stress - tense, restless, nervous, or anxious, or unable to sleep at night because your mind is troubled all the time - these days? Only a little 11/29/2022 Exercise Vital Sign Answer Date Recorde d On average, how many days pe r week do you engage in moderate to strenuous exercise (like a brisk walk)? 3 days 11/29/2022 On average, how many minutes do you engage in exercise at this level? 60 min 11/29/2022 Hunger Vital Sign Answer Date Recorded Within the past 12 months, y ou worried that your food would run out before you got the money to buy more. Never true 11/30/19 23 Within the past 12 months, t he food you bought just didn't last and you didn't have money to get more. Never true 11/29/2022 PRAPARE - Transportation Answer Date Re corded In the past 12 months, has l ack of transportation kept you from medical appointments or from getting medications? No 03/2023 In the past 12 months, has l ack of transportation kept you from meetings, work, or from getting things needed for daily living? No 11/29/2022 Housing Stability Vital Sign Answer Escobar e Recorded In the last 12 months, was t here a time when you were not able to pay the mortgage or rent on time? No 11/29/2022 In the last 12 months, how many places have you lived? 1 11/29/2022 In the last 12 months, was t here a time when you did not have a steady place to sleep or slept in a prison (including now)? No 11/29/2022 Nutrition Answer Date Recorded On average, how many serving s of fruits and vegetables do you eat per day (serving size is equal to 1 cup or approximately the size of a tennis ball)? 2-3 11/29/2022 Dental Answer Date Recorded Dental: Regular Dentist Yes 11/30/19 Employment Answer Date Recorded Employment status Retired 11/29/2022 Education Answer Date Recorded What is the highest level of school you have completed or the highest degree you have received? Associate degree: occupational, technical, or vocational program 11/29/2022 Comments No Sex and Gender Information Value Date Recorded Sex Assigned at Female 12/18/2022 11:59 AM CDT Legal Sex Female 7:16 AM LICENSED PSYCHOLOGIST Gender Identity Female 12/18/2022 11:59 AM CDT Sexual Orientation Straight 12/18/2022 11 :59 AM CDT Last Filed Vital Signs Vital Sign Reading Time Taken Comments Blood Pressure 123/75 01/02/2025 10:49 AM CDT Pulse 70 01/02/2025 10:49 AM CDT Temperature 37 C (98.6 F) 01/02/2025 10:49 AM CDT Respiratory Rate 14 01/02/2025 10:49 AM CDT Oxygen Saturation 97% 01/02/2025 10:49 AM CDT Inhaled Oxygen Concentration - - Weight 53.3 kg (117 lb 8.1 oz) 01/02/2025 10:49 AM CDT Height 167.8 cm (5' 6.06) 10/24/2024 9:01 AM CS T Body Mass Index 18.93 10/24/2024 9:01 AM LICENSED PSYCHOLOGIST Plan of Treatment Upcoming Encounters Date Type Department Care Team (Latest Contact Info) Description 02/24/2025 11:00 AM CDT Clinical Communication Virtual Review in [place], [place] [address] [place] [address] 02/26/2025 10:40 AM CDT Office Visit Department of Oncology in [place], [place] [address] [place] [phone] Hamida Mercedes P.A.-C., M.S. [address] [place] [phone] 04/08/2025 10:30 AM CDT Clinical Communication Virtual Review in [place], [place] [address] [place] [address] 04/10/2025 8:30 AM CDT Appointment Department of Laboratory Medicine and Pathology, [facility], in [place], [place] [address] [place] [phone] Cinthya Martinez M.D. [address] [place] [phone] 04/10/2025 10:45 AM CDT Appointment Department of Radiology, [facility], in [place], [place] [address] [place] [phone] Soraya Swan M.D., M.S. [address] [place] [phone] 04/10/2025 2:40 PM CDT Office Visit Department of Oncology in [place], [place] [address] [place] [phone] Guanako Davis M.D., Ph.D. [address] [place] [phone] Health Maintenance Due Date Last Done Comments CT Colonography 1953 Cologuard 1955 Colonoscopy 1955 Colorectal Cancer Surveillance 1955 Hepatitis C Screening 1955 Zoster Vaccines (1 of 2) 2003 Pneumococcal vaccine (50+ years) (2 of 2 - PCV) 06/23/2021 06/23/2020 Lipid (Cholesterol) Screening 10/07/2023 10/07/2022, 10/03/2022, 08/03/2021, Additional history exists Influenza Vaccine (#1) 2024 , 07/20/2021, 06/23/2020, Additional history exists Depression Screening (Annual PHQ-2) 09/25/2024 Fall Risk Screen (Annual) 09/25/2024 COVID-19 Vaccine ( season) 2024 06/17/2024, 10/18/2023, 08/03/2021, Additional history exists Mammogram 11/22/2025 11/22/2024, 10/27, 06/07/2022, Additional history exists Office Visit for Blood Pressure Check / Re-check 01/02/2026 01/02/2025 Fasting Glucose for Diabetes Screening 08/16/2026 08/16/2023, 05/15/2023, 04/24/2023, Additional history exists DTaP,Tdap,and Td Vaccines (3 - Td or Tdap) 04/07/2030 04/07/2020, 12/27/2016, 10/11/2005, Additional history exists IPV Vaccines Aged Out No longer eligi ble based on patient's age to complete this topic Procedures Procedure Name Priority Date/Time Associated Diagnosis Comments CANCER AG 125 (CA 125), S Routine 01/02/2025 8:54 AM CDT Malignant Neoplasm Of Ovary Right (HCC) COMPREHENSIVE METABOLIC PANEL, S/P Routine 08/16/2023 7:39 AM LICENSED PSYCHOLOGIST 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 and performed on the Mena system. Values obtained with different assay methods or kits may be different and cannot be used interchangeably. Test results cannot be interpreted as absolute evidence for the presence or absence of malignant disease. Blood (Blood, Venous) 01/02/2025 8:54 AM CDT 01/02/2025 1:16 PM CDT Yohana Lopez APRN, C.N.P., M.S.N. LAB BLOOD ADD-ON Final Result [facility] [address] [place] [address] [facility] [address] [place] [address] * Comprehensive Metabolic Panel (08/16/2023 7:39 AM LICENSED PSYCHOLOGIST) Pathologist [facility] Potassium, S 4.2 3.6 - 5.2 mmol/L 08/16/2023 8:41 AM LICENSED PSYCHOLOGIST DTL Sodium, S 141 135 - 145 mmol/L 08/16/2023 8:41 AM LICENSED PSYCHOLOGIST DTL Chloride, S 101 98 - 107 mmol/L 08/16/2023 8:41 AM LICENSED PSYCHOLOGIST DTL Bicarbonate, S 28 22 - 29 mmol/L 08/16/2023 8:41 AM LICENSED PSYCHOLOGIST DTL Anion Gap 12 7 - 15 08/16/2023 8:41 AM LICENSED PSYCHOLOGIST DTL BUN (Blood Urea Nitrogen), S 16 6 - 21 mg/dL 08/16/2023 8:41 AM LICENSED PSYCHOLOGIST DTL Creatinine 0.72 0.59 - 1.04 mg/dL 08/16/2023 8:41 AM LICENSED PSYCHOLOGIST DTL Estimated GFR (eGFR) >90 >=60 mL/min/BS A 08/16/2023 8:41 AM LICENSED PSYCHOLOGIST DTL Comment: Estimated GFR calculated using the 2020 CKD_EPI creatinine equation. Calcium, Total, S 9.7 8.8 - 10.2 mg/dL 08/16/2023 8:41 AM LICENSED PSYCHOLOGIST DTL Glucose, S 96 70 - 140 mg/dL 08/16/2023 8:41 AM LICENSED PSYCHOLOGIST DTL Protein, Total, S 7.3 6.3 - 7.9 g/dL 08/16/2023 8:41 AM LICENSED PSYCHOLOGIST DTL Albumin, S 5.0 3.5 - 5.0 g/dL 08/16/2023 8:41 AM LICENSED PSYCHOLOGIST DTL Aspartate Aminotransferase (AST), S 21 8 - 43 U/L 08/16/2023 8:41 AM LICENSED PSYCHOLOGIST DTL Alkaline Phosphatase, S 80 35 - 104 U/L 08/16/2023 8:41 AM LICENSED PSYCHOLOGIST DTL Alanine Aminotransferase (ALT), S 16 7 - 45 U/L 08/16/2023 8:41 AM LICENSED PSYCHOLOGIST DTL Bilirubin, Total, S 0.4 0.0 - 1.2 mg/dL 08/16/2023 8:41 AM LICENSED PSYCHOLOGIST DTL Blood (Blood, Venous) 08/16/2023 7:39 AM LICENSED PSYCHOLOGIST 08/16/2023 8:19 AM LICENSED PSYCHOLOGIST us Cinthya Martinez M.D. LAB BLOOD ADD-ON Final Resul t [facility] [address] [place] [address], [facility] DTL [facility] [address] [place] [address] from Last 3 Months or Most Recently Relevant to Health Maintenance [facility] Advance Directives For more information, please contact: [phone] * Full Code (Latest Code Status on File) Date Activated Date Inactivated Comments 12/02/2022 2:31 PM 12/07/2022 7:02 PM Question Answer Comments Full Code: Discussed * Full Code Date Activated Date Inactivated Comments 12/02/2022 5:54 AM 12/02/2022 2:31 PM Question Answer Comments Full Code: Discussed Care Teams Pipe Wrapping Machine Operator Relationship Specialty Start Date End Date Elsewhere, Pcp PCP - General Internal Medicine 02/08/23
--- OUTSIDE RECORDS SUMMARY | 2025-02-02 10:28 | XMS_ITS | Clinical Summary ---
Author Organization [facility] Address [address] [place] [address] Care Team Providers Care Senior Web Analyst Name Role Phone Unassigned, Provider Primary Care Provider Unava ilable Source Comments You are receiving this document as you are listed as the primary care provider,follow-up provider, or the patient has been referred to you for consultation.This is in compliance with the Medicare andMedicaid EHR Incentive Program,which states Providers who transition their patient to another setting of careor provider of care or refers their patient to another provider of care shouldprovide summary care record for each transition of care or referral. [email or web address] Allergies Active Allergy Reactions Criticality Noted Date Comments Acetaminophen Palpitations 07/09/2010 Cephalexin Breathing Difficulty High 07/09/2010 Keflex Ciprofloxacin Other, see comments 08/24/2014 States it messes with her P wave in her heart. Codeine 01/03/2016 Levofloxacin Nausea 07/09/2010 Nitrofurantoin Breathing Difficulty High 08/24/2014 Pseudoephedrine Tachycardia 07/09/2010 Sulfamethoxazole-Trimeth oprim Palpitations 08/27/2014 Medications diltiaZEM (CARDIZEM) 30 MG tablet Take 120 mg by mouth. Active ALPRAZolam (XANAX) 0.5 MG tablet Take 1 tablet by mouth as needed for anxiety maximum 3 per day 6 Active calcium carbonate (CALCIUM 600 MG ELEMENTAL CA) 600 MG tablet Take 1,500 mg by mouth. Active Calcium Citrate-Vitamin D (CALCIUM + D OR) Take by mouth. Activ e zoledronic acid (RECLAST) 5 MG/100ML injection Administer 100 mL intravenously. 8 Active diltiaZEM CD coated beads (CARDIZEM CD) 120 MG 24 hour release capsule Take 120 mg by mouth. 8 Active acyclovir (ZOVIRAX) 5 % ointment APPLY TO THE AFFECTED AREA(S) BY TOPICAL ROUTE EVERY 4 HOURS X 7 DAYS. 1 8 Active amoxicillin (AMOXIL) 500 MG capsule TAKE 4 CAPSULES BY MOUTH 1 HOUR BEFORE APPT 99 8 Active estradiol (ESTRACE) 0.1 MG/GM vaginal cream INSERT 1 GRAM BY VAGINAL ROUTE 3 TIMES PER WEEK 3 8 Active Active Problems Problem Noted Date Diagnosed Date Age-related osteoporosis wit hout current pathological fracture 10/04/2018 SVT (supraventricular tachycardia) 10/04/2018 Immunizations Immunization Administration Dates Next Due Flu Vac (3+ yrs) 06/27/2013 Influenza IIV3 (Trivalent) F luzone Highdose, 65+ Yrs (33435) 08/29/2019 Influenza IIV4 (Quadrivalent ) 0.5mL (11985) 08/07/2018,07/28/2017,07/28/2016,2014,06/13/2014 Influenza, Unspecified Formulation 07/28/2017, Td 10/11/2005,05/11/2002,10/28/1999 Td (7+ yrs) 10/11/2005 Tdap 12/27/2016 Social History Tobacco Use Types Packs/Day Years Used Date Smoking Tobacco: Former Smokeless Tobacco: Never Alcohol Use Standard Drinks/Week Comments Yes 0 (1 standard drink = 0.6 oz pur e alcohol) Occasional Comments Unknown Sex and Gender Information Value Date Recorded Sex Assigned at Not on file Legal Sex Female 3:45 AM CDT Gender Identity Not on file Sexual Orientation Not on file Last Filed Vital Signs Vital Sign Reading Time Taken Comments Blood Pressure 123/70 10/04/2018 9:46 AM SEAT COVER INSTALLER Pulse 91 10/04/2018 9:46 AM SEAT COVER INSTALLER Temperature - - Respiratory Rate - - Oxygen Saturation - - Inhaled Oxygen Concentration - - Weight 55.7 kg (122 lb 12.8 oz) 10/04/2018 9:46 AM SEAT COVER INSTALLER Height - - Body Mass Index - - Plan of Treatment Health Maintenance Due Date Last Done Comments Colon Cancer Screening Plan Due 1955 Hep C Screening (Preventive Services) 1955 Medicare Annual Wellness Visit 1955 Mammogram 1955 Cholesterol 1998 Zoster/Shingles Vaccine (1 of 2) 2003 Dexa 2018 Pneumococcal Vaccine 50+ Yrs (2 of 2 - PCV) 06/23/2021 06/23/2020 COVID-19 Vaccine (1 - season) 2024 Influenza Vaccine (Season Ended) 2025 06/23/2020, 08/29/2019, 08/07/2018, Additional history exists RSV Vaccine (1 - 1-dose 75+ series) 2028 DTaP/Tdap/Td Vaccine (3 - Tdap) 04/07/2030 04/07/2020, 12/27/2016, 10/11/2005, Additional history exists HepA Vaccine Aged Out No longer eligi ble based on patient's age to complete this topic HepB Vaccine Aged Out No longer eligi ble based on patient's age to complete this topic Hib Vaccine Aged Out No longer eligi ble based on patient's age to complete this topic IPV (Polio) Vaccine Aged Out No longe r eligible based on patient's age to complete this topic MCV4 Vaccine Aged Out No longer eligi ble based on patient's age to complete this topic Meningococcal B Vaccine Aged Out No l onger eligible based on patient's age to complete this topic Insurance [facility] MEDICARE ADVANTAGE Care Teams Senior Web Analyst Relationship Specialty Start Date End Date Unassigned, Provider [address] [place] [address] PCP - General 11/26/00
--- OUTSIDE RECORDS SUMMARY | 2025-02-02 10:28 | XMS_ITS | Encounter Summary ---
Author Organization [facility] Address [address] [place] [address] Care Team Providers Care Broadband Installer Name Role Phone Elsewhere, Pcp Primary Care Provider Unavailabl e Reason for Referral * Outpatient (Routine) - Authorized Specialty Diagnoses / Procedures Referred By Khadijah oliva Referred To Contact Oncology Cinthya Martinez M.D. [address] [place] [address] Phone: tel: fax: [facility] Referral ID Status Reason Start Date Expiration Date V isits Requested Visits Authorized [id number] Authorized 01/02/2025 07/04/2026 1 1 Reason for Visit * Outpatient (Routine) - Closed Specialty Diagnoses / Procedures Referred By Khadijah oliva Referred To Contact Oncology Soraya Swan M.D., M.S. [address] [place] [address] Phone: tel: fax: [facility] Referral ID Status Reason Start Date Expiration Date Visits Re quested Visits Authorized [id number] Closed 10/04/2024 04/05/2026 1 1 Encounter Details Date Type Department Care Team (Late st Contact Info) Description 01/02/2025 11:00 AM CDT Office Visit Department of Oncology in [place], [place] [address] [place] [phone] Cinthya 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 More than 4 times per year 11/29/2022 Do you belong to any clubs o r organizations such as jainism groups, unions, fraternal or athletic groups, or [...] all 11/29/2022 [facility] - Occupational Stress Questionnaire Answer Date Recorded [...] place to sleep or slept in a intermediate (including now)? No 11/29/2022 Nutrition Answer Date [...] AM CDT Legal Sex Female 7:16 AM SENIOR INTERIOR DESIGNER Gender Identity Female 12/18/2022 11:59 AM CDT Sexual Orientation Straight 12/18/2022 11 :59 AM CDT documented as of this encounter Last Filed Vital Signs Vital Sign Reading Time Taken Comments Blood Pressure 123/75 01/02/2025 10:49 AM CDT Pulse 70 01/02/2025 10:49 AM CDT Temperature 37 C (98.6 F) 01/02/2025 10:49 AM CDT Respiratory Rate 14 01/02/2025 10:49 AM CDT Oxygen Saturation 97% 01/02/2025 10:49 AM CDT Inhaled Oxygen Concentration - - Weight 53.3 kg (117 lb 8.1 oz) 01/02/2025 10:49 AM CDT Height - - Body Mass Index 18.93 10/24/2024 9:01 AM SENIOR INTERIOR DESIGNER documented in this encounter Progress Notes * Cinthya Martinez M.D. - 01/02/2025 11:00 AM CDT HOPPER ATTENDANT ONCOLOGY FOLLOW-UP NOTE Local Oncologist: No care team coordinator to display Primary [facility] Oncologist: Guanako Davis M.D., Ph.D. 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 female who presents for followup. She notes she has been feeling well overall. No issues with abdominal pain, bloating, changes to bowel habits,urinary habits, weight loss. She continues to remain very active, playing pickleball and doing her regular activities. No changes to her health. Oncology History Malignant Neoplasm Of Ovary Right (HCC) Genetic Testing and Tumor Genotyping Negative germline genetic testing in 2022; [facility] Cancer panel from [facility]. beqom Cdx Somatic testing [facility] HR[facility] Status: negative GIS Status: negative Tumor Mutation BRCA1/BRCA2 Status: negative for a clinically significant mutation Results will be scanned into the chart. [facility]: PD-L1 TPS=0% TP53 BRD4 amplification CCND3 amplification NOTCH3 amplification PIM1 amplification TERC amplification-equivocal VEGFA amplification HRD - 10.9% low AMEE FOLR1 =100% positive Claudin 6 positive for TORL 10/2022 Initial Diagnosis Malignant Neoplasm Of Ovary Laterality Unknown (HCC) Evaluation s/p months of left sided pain. 11/23/22 pelvic ultrasounds revealed findings concerning for malignancy in the right ovary. CA125 of 177. 11/28/2022 CT of the chest, abdomen, and pelvis revealed right adnexal cysts, some demonstrating increased enhancement and irregular margins, indeterminate. 12/02/2022 Surgery and Procedures Underwent exploratory laparotomy, modified radical hysterectomy, RSO, omentectomy, lysis of adhesions, tumor debulking, and right partial diaphragm resection. RD = 0. Surgeon: Dr. Potter 12/02/2022 Biopsy/Pathology Tumor Site: Right tubo-ovarian Tumor Size: 6.8 cm in greatest dimension Histologic Type: Carcinosarcoma (malignant mixed Mullerian tumor) Histologic Grade: G3, poorly differentiated Ovarian Surface Involvement: Present Fallopian Tube Surface Involvement: Present Implants: Present, uterine serosa, sigmoid colon serosa, bladder peritoneum, diaphragm, omentum, right cul-de-sac peritoneum Other Tissue/Organs Involvement: Uterine serosa, sigmoid colon serosa, bladder peritoneum, diaphragm, omentum, right cul-de-sac peritoneum Largest Extrapelvic Peritoneal Focus: Macroscopic (2 cm or less): omentum Regional Lymph Node Status(no regional lymph nodes submitted or found) FIGO Stage (2018): IIIB Stage IIIB ovarian carcinosarcoma 12/29/2022 - 04/25/2023 Chemotherapy CARBOplatin AUC 6 / PACLitaxel ( HOPPER ATTENDANT ) Start Date: 12/29/2022 05/15/[address] after completion of treatment, ROXANNE. REVIEW OF SYSTEMS 12 point review of systems negative unless otherwise stated in the HPI. Medications: reviewed in Epic OBJECTIVE BP 123/75 (BP Location: Left arm, Patient Position: Sitting, Cuff Size: Regular) Pulse 70 Temp 37 ??C (Tympanic) Resp 14 Wt 53.3 kg SpO2 97% BMI 18.93 kg/m?? Physical Exam Appearance: well-appearing, well-nourished, in no apparent distress HEENT: moist mucous membranes, no cervical or supraclavicular lymphadenopathy Cardiac: regular rate and rhythm, no murmurs, rubs or gallops Lungs: clear to auscultation bilaterally, no wheezes, rhonchi or rales Abdomen: normoactive bowel sounds, soft, nontender to palpation Skin: no rashes or lesions Extremities: strong distal pulses, no lower extremity edema Show Girl: Burg[place] Pelvic: Normal external genitalia, no abnormality on pelvic exam, no palpable nodules on bimanual or rectal exam. Lab and radiology data reviewed. ASSESSMENT / PLAN Brooke Johnson is a 69 y.o. 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 #1 Malignant Neoplasm Of Ovary Right (HCC) Overall, she has no symptoms to suggest signs of disease recurrence. Pelvic exam is also negative for recurrence. We are still awaiting the results of the CA-125 draw. If stable, she will return in 3months with restaging scans at that time. If no evidence of disease at that visit, she could transition to the HOPPER ATTENDANT survivorship clinic. ADDENDUM: CA-125 returned stable at 29. Follow-up as had been previously discussed. Cinthya Martinez M.D. Orders Placed This Encounter Procedures Cancer Antigen 125 (CA 125) Oncology office visit (clinic) documented in this encounter Plan of Treatment Upcoming Encounters Date Type Department Care Team (Latest Contact Info) Description 02/24/2025 11:00 AM CDT Clinical Communication Virtual Review in [address] [phone] 02/26/2025 10:40 AM CDT Office Visit Department of Oncology in [place], [place] [address] [place] [phone] Hamida Mercedes P.A.-C., M.S. [address] [place] [phone] 04/08/2025 10:30 AM CDT Clinical Communication Virtual Review in [place], [place] [address] [place] [address] 04/10/2025 8:30 AM CDT Appointment Department of Laboratory Medicine and Pathology, [facility] in [address] [phone] iCnthya Martinez M.D. [address] [place] [phone] 04/10/2025 10:45 AM CDT Appointment Department of Radiology, [facility] in [address] [phone] Soraya Swan M.D., M.S. [address] [place] [phone] 04/10/2025 2:40 PM CDT Office Visit Department of Oncology in [address] [phone] Guanako Davis M.D., Ph.D. [address] [place] [phone] Scheduled Orders Name Type Priority Associated Diagnoses Orde r Schedule Cancer Antigen 125 (CA 125) Lab Routine Malignant Neoplasm Of Ovary Right (HCC) Expected: 04/03/2025, Expires: 04/03/2026 Scheduled Referrals Name Type Priority Associated Diagnoses Orde r Schedule Oncology office visit (clinic) Outpatient Referral Routine Expected: 04/03/2025, Expires: 04/03/2026 documented as of this encounter Visit Diagnoses Diagnosis Malignant Neoplasm Of Ovary Right (HCC)- Primary documented in this encounter Care Teams Broadband Installer Relationship Specialty Start Date End Date Elsewhere, Pcp PCP - General Internal Medicine 02/08/23 documented as of this encounter
--- OUTSIDE RECORDS SUMMARY | 2025-02-02 10:28 | XMS_ITS | CCD ---
Author Name Interface, [facility] Address [address] [facility] [address] [place] [address] [facility] Oncology Address [address] [facility] [address] [place] [address] Care Team Providers Care Quartz Miner Name Role Phone Viji Hayward Unavailable Unavailable Reason for Visit Encounters Medications Problems Social History
--- OUTSIDE RECORDS SUMMARY | 2025-02-02 10:28 | XMS_ITS ---
Author Organization [facility] Address [address] [place] [address] Care Team Providers Care Shading Painter Name Role Phone Elsewhere, Pcp Primary Care Provider Unavailabl e Active Problems * This document contains information received from the source organization and may not represent a complete record from that organization. Problem Noted Date Diagnosed Date Adverse Effect Chemotherapy Initial 12/29/2022 Other Alf Current Drug Therapy 12/22/2022 Malignant Neoplasm Of Ovary Right 12/08/2022 Cancer Staging:Clinical stage from 12/14/2022:FIGO Stage IIIB(cT3b, cN0, cM0) - Signed by Geraldo Potter M.D. 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 Past Treatment and Therapy Plans Flushes/Hydration Plan Name Start Date Discontinue Date Treatment Medications Discontinue Reason Plan Provider Vascular Access Patency - Peripheral Intravenous Catheter and Rapid Infusion Catheter 12/29/2022 12/25/2023 No medications scheduled. Therapy Complete - Hematology / Oncology Treatment 1 Plan Name Start Date Discontinue Date Treatment Medications Discontinue Reason Plan Provider Cycles CARBOplatin AUC 6 / PACLitaxel ( PRACTICE OFFICE ASSOCIATE ) 12/29/2022 12/25/2024 CARBOplatin (Paraplatin)C ARBOplatin (Paraplatin) IVPB (BY AUC) in 250 mL (Paraplatin)P ACLitaxel (TaxoL)PACLIt [place] (TaxoL) IVPB in 250 mL (TaxoL) Discontinuation of Plans with No Action >1 year-System Maintenance Guanako Davis M.D., Ph.D. 6 of 6 cycles started Resolved Problems Problem Noted Date Diagnosed Date Resolved Date Peptic Ulcer Site Unspecifie d Unspecified As Acute Or Chronic Without Hemorrhage Or Perforation 06/23/2020 11/30/2022
--- OUTSIDE RECORDS SUMMARY | 2025-02-02 10:28 | XMS_ITS | Encounter Summary ---
Author Organization [facility] Address [address] [place] [address] Care Team Providers Care Hand Presser Name Role Phone Elsewhere, Pcp Primary Care Provider Unavailabl e Encounter Details Date Type Department Care Team (Latest Contact Info) Description 01/02/2025 8:41 AM CDT - 01/02/2025 11:59 PM CDT Hospital Encounter Department of Laboratory Medicine and Pathology, [facility] in [place], [place] [address] [place] [address] Yohana Lopez APRN, C.N.P., M.S.N. [address] [place] [phone] Malignant Neoplasm Of Ovary Right (HCC) Discharge Disposition: Home or Self Care Social History Tobacco Use Types Packs/Day Years [...] How often do you attend chur or hindu services? More than 4 times per year 11/29/2022 Do you belong to any clubs o r organizations such as alevism groups, unions, fraternal or athletic groups, or [...] and heating? Not hard at all 11/29/2022 [facility] [place] of Occupat ional Health - Occupational Stress [...] money to buy more. Never true 11/30/19 Within the past 12 months, t he [...] place to sleep or slept in a alf (including now)? No 11/29/2022 Nutrition Answer Date [...] AM CDT Legal Sex Female 7:16 AM STUDENT ACTIVITIES DIRECTOR Gender Identity Female 12/18/2022 11:59 AM CDT Sexual Orientation Straight 12/18/2022 11 :59 AM CDT documented as of this encounter Medications at Time of Discharge ALPRAZolam (XANAX) 0.5 mg tablet Take 1 tablet (0.5 mg total) by mouth 3 (three) times a day as needed for anxiety. Do not take alprazolam within 4 hours of opioids (hydromorphone, oxycodone) administration. Taking these medications together increases the risk of severe drowsiness/sedatio n, falls, and difficulty breathing. 30 tablet 12/04/2022 amoxicillin (AMOXIL) 500 mg capsule as needed. 09/08/2022 calcium phosphate trib/vit D3 (CITRACAL + D3, CALCIUM PHOS, ORAL) Take 1 tablet by mouth daily. cholecalciferol, vitamin D3, (cholecalciferol ) 25 mcg (1,000 Unit) tablet Take 25 mcg by mouth daily. dilTIAZem CD (CARDIZEM CD/CARTIA XT) 120 mg 24 hr capsule Take 120 mg by mouth. 2 times per day fluticasone propionate (FLONASE) 50 mcg/actuation nasal spray Administer 2 sprays into nostril(s) as needed. 04/26/2019 ibuprofen (ADVIL,MOTRIN) 200 mg tablet Take 1 tablet (200 mg total) by mouth every 6 (six) hours as needed for pain. After you are done with hydromorphone and no longer requiring it for pain, begin to taper off of ibuprofen as you are able to. 12/04/2022 ketoconazole (NIZORAL) 2 % shampoo as needed. 06/30/2022 potassium chloride (K-TAB) 20 mEq CR tablet Take 10 mEq by mouth. Takes occasionally 10/02/2022 tacrolimus-niaci namide 0.1-4 % ointment TACROLIMUS TOPICAL OINTMENT 0.1 % QD TO EYELID ACTIVE documented as of this encounter Plan of Treatment Upcoming Encounters Date Type Department Care Team (Latest Contact Info) Description 02/24/2025 11:00 AM CDT Clinical Communication Virtual Review in [place], [place] 200 [place] [address] 02/26/2025 10:40 AM CDT Office Visit Department of Oncology in [address] [phone] Hamida Mercedes P.A.-C., M.S. [address] [place] [phone] 04/08/2025 10:30 AM CDT Clinical Communication Virtual Review in [place], [place] [address] [place] [phone] 04/10/2025 8:30 AM CDT Appointment Department of Laboratory Medicine and Pathology, [facility] in [place] [phone] Cinthya Martinez M.D. [address] [place], [place] [phone] 04/10/2025 10:45 AM CDT Appointment Department of Radiology, [facility] in [address] [phone] Soraya Swan M.D., M.S. [address] [place], [place] [phone] 04/10/2025 2:40 PM CDT Office Visit Department of Oncology in [address] [phone] Guanako Davis M.D., Ph.D. [address] [place], [place] [phone] documented as of this encounter Procedures Procedure Name Priority Date/Time Associated Diagnosis Comments CANCER AG 125 (CA 125), S Routine 01/02/2025 8:54 AM CDT Malignant Neoplasm Of Ovary Right (HCC) documented in this encounter Results * Cancer Antigen 125 (CA 125) (01/02/2025 8:54 AM CDT) Cancer Ag 125 (CA 125), S 29 <46 U/mL 01/02/2025 4:21 PM CDT [facility] Comment: ----ADDITIONAL INFORMATION---- The testing method is [...] 8:54 AM CDT 01/02/2025 1:16 PM CDT Madan Clarke APRNNSylvie., M.S.N. LAB BLOOD ADD-ON Final Result [facility] [address] [place] [address] [facility] [address] [place] [address] documented in this encounter Visit Diagnoses Diagnosis Malignant Neoplasm Of Ovary Right (HCC) documented in this encounter Care Teams Hand Presser Relationship Specialty Start Date End Date Elsewhere, Pcp PCP - General Internal Medicine 02/08/23 documented as of this encounter
--- OUTSIDE RECORDS SUMMARY | 2025-02-02 10:29 | XMS_ITS | Encounter Summary ---
Author Organization [facility] Address [address] [facility] [place] [address] Care Team Providers Care Plant Operations Vice President Name Role Phone Mono Garcia MD Primary Care Provider [phone] Encounter Details Date Type Department Care Team (Late st Contact Info) Description 07/13/2021 Documentation Only INTERFACED REPORT Unknown, Provider Social History Tobacco Use Types Packs/Day Years Used Date Smoking Tobacco: Never Alcohol Use Standard Drinks/Week Comments Yes 0 (1 standard drink = 0.6 oz pur e alcohol) Adolescent Education Answer Date Record ed Getting School Help Needed Not on file 07/09 Comments Unknown Sex and Gender Information Value Date Recorded Sex Assigned at Not on file Legal Sex Female 2:58 AM AMBULANCE ATTENDANT Gender Identity Not on file Sexual Orientation Not on file COVID-19 Exposure Response Date Recorded In the last 10 days, have yo u been in contact with someone who was confirmed or suspected to have Coronavirus/COVID-19? No / Unsure 03/08/2023 12:31 AM CDT documented as of this encounter Plan of Treatment Not on file documented as of this encounter Visit Diagnoses Not on filedocumented in this encounter Additional Health Concerns Infection Onset Date Last Indicated Resolved Time Rule Out C-difficile 03/08/2023 03/08/2023 023 9:37 AM CDT documented as of this encounter Care Teams Plant Operations Vice President Relationship Specialty Start Date End Date Mono Garcia MD [facility] [address] [place] [address] PCP - General Family Practice 07/15/14 documented as of this encounter
--- OUTSIDE RECORDS SUMMARY | 2025-02-02 10:29 | XMS_ITS | Clinical Summary ---
Author Organization [facility] Address [address] 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 States it messes with her P wave in her heart. Codeine 01/03/2016 Levofloxacin Nausea 07/09/2010 Nitrofurantoin Difficulty breathing High 08/24/2014 Other reaction(s): *Unknown Flu - like symptoms Pseudoephedrine 07/09/2010 Other reaction(s): Tachycardia Sulfamethoxazole-Trimet hoprim Palpitations Low 08/27/2014 Medications Calcium-Phospho panda-Vitamin D (CITRACAL +D3 PO) Take 1 tablet by mouth 2 times daily Active fluticasone (FLONASE) 50 MCG/ACT nasal spray Oral 1 spray into both nostrils daily as needed for allergies or rhinitis Active diltiazem ER COATED BEADS (CARDIZEM CD) 120 MG 24 hr capsule Take 120 mg by mouth 2 times daily Active famotidine (PEPCID) 20 MG tablet Take 20 mg by mouth 2 times daily Active prochlorperazin e (COMPAZINE) 10 MG tablet Take 10 mg by mouth every 6 hours as needed for nausea or vomiting Active ondansetron (ZOFRAN) 8 MG tablet Take 8 mg by mouth every 8 hours as needed for nausea Active LORazepam (ATIVAN) 0.5 MG tablet Take 0.5 mg by mouth every 6 hours as needed for nausea Active Active Problems Problem Noted Date Diagnosed Date Colitis 03/08/2023 Bloody diarrhea 03/08/2023 Pelvic mass 11/30/2022 Elevated CA-125 11/30/2022 HTN (hypertension) 11/30/2022 Anxiety 11/30/2022 PUD (peptic ulcer disease) 11/30/2022 Senile osteoporosis 11/17/2017 Encounters Date Type Department Care Team Description 11/22/2024 9:27 AM CORROSION CONTROL FITTER - 11/22/2024 11:59 PM CORROSION CONTROL FITTER Hospital Encounter [facility] [address] [facility] [place] [address] Mono Garcia MD Visit for screening mammogram Discharge Disposition: Home or Self Care 11/22/2024 Travel from Last 3 Months Social History Tobacco Use Types Packs/Day Years Used Date Smoking Tobacco: Never Alcohol Use Standard Drinks/Week Comments Yes 0 (1 standard drink = 0.6 oz pur e alcohol) Adolescent Education Answer Date Record ed Getting School Help Needed Not on file 07/09 Comments Unknown Sex and Gender Information Value Date Recorded Sex Assigned at Not on file Legal Sex Female 2:58 AM CORROSION CONTROL FITTER Gender Identity Not on file Sexual Orientation Not on file Last Filed Vital Signs Vital Sign Reading Time Taken Comments Blood Pressure 134/78 03/12/2023 10:33 AM CDT Pulse 79 03/12/2023 10:33 AM CDT Temperature 36.4 C (97.5 F) 03/12/2023 10:33 AM CDT Respiratory Rate 16 03/12/2023 10:33 AM CDT Oxygen Saturation 98% 03/12/2023 10:33 AM CDT Inhaled Oxygen Concentration - - Weight 51.5 kg (113 lb 9.6 oz) 03/12/2023 5:46 A M CDT Height 167.9 cm (5' 6.1) 03/11/2023 9:00 AM CDT Body Mass Index 18.28 03/11/2023 9:00 AM CDT Plan of Treatment Health Maintenance Due Date Last Done Comments ADVANCE CARE PLANNING 1955 ANNUAL REVIEW OF HM ORDERS 1953 CT COLONOGRAPHY 1953 DEXA 1953 FLEX SIG 1953 sDNA (Cologuard) 1953 COLONOSCOPY 1963 HEPATITIS C SCREENING 1971 ZOSTER IMMUNIZATION (1 of 2) 2003 RSV VACCINE (1 - Risk 60-74 years 1-dose series) 2013 COLORECTAL CANCER SCREENING 07/18/2018 FIT 07/18/2018 07/18/2017 FALL RISK ASSESSMENT 2018 Pneumococcal Vaccine: 50+ Years (2 of 2 - PCV) 06/23/2021 06/23/2020 LIPID 10/18/2022 10/18/2017 BMP 03/11/2024 03/11/2023, 02/23, 03/09/2023, Additional history exists PHQ-2 (once per calendar year) 2024 COVID-19 Vaccine ( season) 2024 06/17/2024, 10/18/2023, 08/03/2021, Additional history exists INFLUENZA VACCINE (Season Ended) 2025 10/03/2022, 07/20/2021, 06/23/2020, Additional history exists MEDICARE ANNUAL WELLNESS VISIT 11/04/2025 11/04/2024, 10/03/2022, 08/03/2021, Additional history exists DIABETES SCREENING 03/11/2026 03/11/2023, 0 03/10/2023, 03/09/2023, Additional history exists MAMMO SCREENING 11/22/2026 11/22/2024, 05/26, 03/16/2021, Additional history exists DTAP/TDAP/TD IMMUNIZATION (3 - Td or Tdap) 04/07/2030 04/07/2020, 12/27/2016, 10/11/2005, Additional history exists HPV IMMUNIZATION Aged Out No longer e ligible based on patient's age to complete this topic MENINGITIS IMMUNIZATION Aged Out No l onger eligible based on patient's age to complete this topic Procedures Procedure Name Priority Date/Time Associated Diagnosis Comments MA SCREENING BILATERAL W/ KERWIN Routine 11/22/2024 9:46 AM CORROSION CONTROL FITTER Visit for screening mammogram BASIC METABOLIC PANEL Timed 03/11/2023 8:55 AM CDT LIPID PROFILE Routine 10/18/2017 from Last 3 Months or Most Recently Relevant to Health Maintenance Results * MA Screen Bilateral w/Kerwin (11/22/2024 9:46 AM CORROSION CONTROL FITTER) Anatomical Region Laterality Modality Breast Bilateral Mammography Impressions 11/22/2024 10:33 AM CORROSION CONTROL FITTER IMPRESSION: ACR BI-RADS Category 1: Negative BREAST CANCER SCREENING RECOMMENDATION: Routine yearly mammography beginning at age 40 or as discussed with your provider. The results and recommendations of this examination will be communicated to the patient. Fawn Santos MD Narrative 11/22/2024 10:33 AM CORROSION CONTROL FITTER BILATERAL FULL FIELD DIGITAL SCREENING MAMMOGRAM WITH TOMOSYNTHESIS Performed on: 11/22/24 Compared to: 06/07/2022, 03/16/2021, and 11/01/2019 Technique: This study was evaluated with the assistance of Computer-Aided Detection. Breast Tomosynthesis was used in interpretation. Findings: The breasts are heterogeneously dense, which may obscure small masses. There is no radiographic evidence of malignancy. us Mono Garcia MD IMG MAMMOGRAPHY ORDERABLE S Final Result * (ABNORMAL) Basic metabolic panel (03/11/2023 8:55 AM CDT) Sodium 139 136 - 145 mmol/L 03/11/2023 9:22 AM CDT [facility] Potassium 3.3(L) 3.4 - 5.3 mmol/L 03/11/2023 9:22 AM CDT [facility] Chloride 100 98 - 107 mmol/L 03/11/2023 9:22 AM CDT [facility] Carbon Dioxide (CO2) 28 22 - 29 mmol/L 03/11/2023 9:22 AM CDT [facility] Anion Gap 11 7 - 15 mmol/L 03/11/2023 9:22 AM CDT [facility] Urea Nitrogen 11.5 8.0 - 23.0 mg/dL 03/11/2023 9:22 AM CDT [facility] Creatinine 0.65 0.51 - 0.95 mg/dL 03/11/2023 9:22 AM CDT [facility] Calcium 9.2 8.8 - 10.2 mg/dL 03/11/2023 9:22 AM CDT [facility] Glucose 129(H) 70 - 99 mg/dL 03/11/2023 9:22 AM CDT [facility] GFR Estimate >90 >60 mL/min/1.7 3m2 03/11/2023 9:22 AM CDT LABORATORY Comment:eGFR calculated usin 2020 CKD-EPI equation. Blood STRUCTURE OF LEFT UPPER LIMB / Unknown Venipuncture / Unknown 03/11/2023 8:55 AM CDT 03/11/2023 9:02 AM CDT us Yony Lockett MD LAB - BLOOD ORDERABLES Final Result LABORATORY [facility] [address] Lab (1st floor, no room number) [place] [address], [facility] [phone] * Lipid Profile (10/18/2017) Cholesterol 226 <200 mg/dL [facility] Triglycerides 107 <150 mg/dL [facility] HDL Cholesterol 97 >40 mg/dL [facility] LDL Cholesterol Calculated 109 <100 mg/dL [facility] Non HDL Cholesterol 129 <130 mg/dL [facility] Blood specimen (specimen) 10/18/2017 Narrative [facility] - 10/18/2017 LAB RESULT [facility] us Provider Outside LAB - BLOOD ORDERABLES Final Re sult [facility] [address] [place] [address] from Last 3 Months or Most Recently Relevant to Health Maintenance Insurance [facility] MEDICARE ADVANTAGE Advance Directives For more information, please contact: [phone] * Full Code (Latest Code Status on File) Date Activated Date Inactivated Comments 03/08/2023 12:30 PM 03/12/2023 4:01 PM All basic a nd advanced life-sustaining interventions are performed as appropriate Question Answer Comments Code status determined by: Discussion with lo nt/ legal decision maker Care Teams 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
--- OUTSIDE RECORDS SUMMARY | 2025-02-02 10:29 | XMS_ITS | Clinical Summary ---
Author Organization [employer] [facility] Address [address] [place] [address] Care Team Providers Care Box Office Agent Name Role Phone Mono Garcia MD Primary Care Provider Allergies Active Allergy Reactions Criticality Noted Date Comments Acetaminophen Palpitations 07/09/2010 Diphenhydramine Palpitations 10/15/2024 Cephalexin Shortness Of Breath 07/09/2010 Keflex Ciprofloxacin Other - Describe In Comment Field 08/24/2014 States it messes with her P wave in her heart. Codeine Shortness Of Breath 07/09/2010 Diphenhydramine Hcl Palpitations 12/29/2022 Lactase GI Upset 11/27/1999 Levofloxacin Nausea Only 07/09/2010 Nitrofurantoin *Unknown 08/24/2014 Flu - like symptoms Pseudoephedrine Tachycardia 07/09/2010 Sulfamethoxazole-Trimetho prim Palpitations 08/27/2014 Sulfamethoxazole Palpitations 08/28/2014 Medications calcium carbonate (CALCIUM 600) 600 mg (1,500 mg) tablet Take 1 tablet by mouth once daily. 0 Active ketoconazole 2% shampoo (NIZORAL) 2 % shampoo WASH SCALP 2-3 TIMES A WEEK 2 Active tacrolimus 0.1% (PROTOPIC) 0.1 % ointment APPLY TO EYELID AREAS ONCE DAILY 2 Active prochlorperazine (COMPAZINE) 10 mg tablet TAKE 1 TABLET BY MOUTH EVERY 6 HR NEED FOR NAUSEA/VOMITING UNRELIEVED BY ONDANSETRON 3 Active ondansetron (ZOFRAN) 8 mg tablet TAKE 1 TABLET BY MOUTH EVERY 8 HOURS NEEDED FOR NAUSEA OR VOMITING. 3 Active ibuprofen (ADVIL; MOTRIN) 200 mg tablet Take 200 mg by mouth every 6 hours if needed. 3 Active ALPRAZolam (XANAX) 0.5 mg tabletIndication s:Anxiety state Take 1 tablet by mouth as needed for anxiety maximum 3 per day 30 Tablet 5 Active amoxicillin 500 mg capsuleIndicatio ns:Dental anomaly 4 po one hour before dentist 16 Capsule 5 Active dilTIAZem (CARDIZEM) 30 mg tabletIndication s:SVT (supraventricula r tachycardia) (HC) Take 30 mg by mouth every 6 hours if needed (SVT). 30 Tablet 3 5 Active dilTIAZem CD (CARDIZEM CD) 120 mg extended release 24 hr capsuleIndicatio ns:SVT (supraventricula r tachycardia) (HC) Take 1 Capsule (120 mg) by mouth two times daily. 180 Capsule 3 5 Active fluticasone (50 mcg per actuation) nasal solution (FLONASE)Indicat ions:Rhinitis, unspecified type Inhale 2 Sprays in both nostrils once daily. 48 mL 2 5 Active Active Problems Problem Noted Date Diagnosed Date Malignant neoplasm of right ovary 10/28/2024 History of COVID-19 10/06/2022 Vaginal dryness 10/06/2022 Peptic ulcer disease, diagnosis 06/1406/23/2020 hypertension 06/23/2020 Routine health maintenance 11/04/2019 Overview (05/18/2023): Mammogram, 05/17 Hypokalemia 10/16/2019 Chronic right shoulder pain 07/28/2016 Osteoporosis 07/28/2016 Unspecified sinusitis (chronic) 09/01/2010 Anxiety state, unspecified 09/01/2010 Overview (09/01/2010): With Flying PSORIASIS - NOS 12/16/1999 SVT (supraventricular tachycardia) Resolved Problems Problem Noted Date Diagnosed Date Resolved Date 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 10/28/2024 Herpes zoster without complication 06/16/2018 01/29/2019 Diffuse cystic mastopathy 09/01/2010 Chest pain 09/05/2019 Encounters Date Type Department Care Team Description 01/02/2025 Orders Only [facility] Scanner 1 scan: (1-Ord) [facility], RESULTS, 01/02/2025 12/03/2024 Refill [facility] [address] [place] [address] Mono Garcia MD Refill Request (Fluticasone/) 11/19/2024 Telephone [facility] [address] [address] [place] [id number] Donna Pickett PA Results (BMP, LFT, CBC, Lipid) 11/12/2024 11:00 AM STONE MILL OPERATOR Ancillary Procedure [facility] [address] [address] 11/12/2024 Telephone [facility] [address] [address] Donna Pickett PA Results (echocardiogram) 11/12/2024 Travel from Last 3 Months Immunizations Immunization Administration Dates Next Due AMB INFLUENZA, IIV4 (AGE=>6M OS) MDV (Flu Clinic Only) 08/07/2018,07/28/2017,07/28/2016,2014,06/13/2014 AMB Influenza, IIV4 PF (=>6 mos Flulaval,Fluzone Fluarix)(Flu Clinic Only) 06/13/2014 COVID-19 vaccine (Moderna 100mcg/0.5mL) PF, MDV 08/03/2021,12/10/2020,11/12/2020 Influenza Virus, Unspecified 10/03/2022,07/28/20 17,07/28/2016 Influenza, High-dose Inactivated 08/29/2019 Influenza, IIV3 (Age >=3 years) 06/27/2013 Influenza, IIV4 06/23/2020, 8,07/28/2017,2015,08/18/2015,06/13/2014 Influenza, Inactivated AIIV4 (Age 65+ Years) Preserv Free 07/20/2021 Pneumococcal Poly,23-Valent (Pneumovax) 06/23/2020 Td (Age >=7 Years) 10/11/2005,05/11/2002, 000 Tdap 04/07/2020 Family History Medical History Relation Name Comments Hyperlipidemia Brother Hypertension Brother Melanoma Brother Good Health Daughter Heart Disease Father Heart attack Father No Known Problems Maternal Grandfather No Known Problems Maternal Grandmother Alzheimer's disease Mother Hypertension Mother Alzheimer's No Known Problems Paternal Grandfather Heart failure Paternal Grandmother ?? - y oung Other Paternal Grandmother abdomin al mass Heart Disease Paternal Uncle ear ly 70s Multiple sclerosis Sister Hypertension Son 1 Good Health Son 2 Relation Name Status Comments Brother Alive Daughter Alive Father Maternal Grandfather Maternal Grandmother Mother Paternal Grandfather Paternal Grandmother Paternal Uncle Sister Son 1 Alive Son 2 Alive Social History Tobacco Use Types Packs/Day Years Used Date Smoking Tobacco: Former Cigarettes 1 9 0 09/25/1970 - 09/25/1979 Smokeless Tobacco: Never Tobacco Cessation:Counseling Given: Not Answered Alcohol Use Standard Drinks/Week Comments Yes 0 (1 standard drink = 0.6 oz pur e alcohol) occasional PHQ-2 Answer Date Recorded PHQ-2 TOTAL SCORE 0 11/04/2024 Social Connections Answer Date Recorded Frequency of Communication with Friends and Fami ly 0 09/07/2022 Financial Resource Strain Answer Date R ecorded Difficulty of Paying Living Expenses 3 09/07/2022 Difficulty of Paying Living Expenses Not on file 09/07/2022 Food Insecurity Answer Date Recorded Worried About Running Out of Food in the Last Ye ar 1 09/07/2022 Transportation Needs Answer Date Record ed Lack of Transportation (Medical) 1 09/07/2022 Housing Stability Answer Date Recorded Unable to Pay for Housing in the Last Year 1 09/07/2022 Comments No Sex and Gender Information Value Date Recorded Sex Assigned at Not on file Legal Sex Female 5:26 AM STONE MILL OPERATOR Gender Identity Not on file Sexual Orientation Not on file Occupation Industry Job Start Date Job End Date retired Not on file Not on file Not on file Obstetrics History Para Term AB IAB SAB Ectopic Multiple Livin g Live Births 3 3 3 3 Date Outcome GA Total Labor Labor/2nd/3rd Weight Sex Type Anes PTL Chen A1 A5 Name Clin Term Term Term Last Filed Vital Signs Vital Sign Reading Time Taken Comments Blood Pressure 144/80 11/04/2024 9:36 AM STONE MILL OPERATOR Pulse 88 11/04/2024 9:36 AM STONE MILL OPERATOR Temperature 36.8 C (98.2 F) 07/17/2024 5:37 PM CDT Respiratory Rate 18 09/07/2022 9:36 AM STONE MILL OPERATOR Oxygen Saturation 97% 10/15/2024 9:05 AM STONE MILL OPERATOR Inhaled Oxygen Concentration - - Weight 54.8 kg (120 lb 12.8 oz) 11/04/2024 9:36 AM STONE MILL OPERATOR Height 167.6 cm (5' 6) 11/04/2024 9:36 AM STONE MILL OPERATOR Body Mass Index 19.5 11/04/2024 9:36 AM STONE MILL OPERATOR Plan of Treatment Health Maintenance Due Date Last Done Comments Hepatitis C screening for ag e 18-79 1971 Zoster (shingles) series for age 50+ (1 of 2) 1972 Fecal testing non-DNA (FIT,FOBT,iFOBT) for age 45-75 07/18/2018 07/18/2017, 07/18/2014, 07/18/2014 DEXA/DXA scan for age 65+ 2018 Pneumococcal series for age 50+ (2 of 2 - PCV) 06/23/2021 06/23/2020 Mammogram for age 45-75 06/07/2023 06/07/20, 06/07/2022 (Verified in Care Everywhere or Patient Record), 03/16/2021, Additional history exists COVID-19 vaccine series (6 - Moderna risk 2023- season) 2024 06/17/2024, 10/18/2023, 08/03/2021, Additional history exists Influenza Vaccine (Season Ended) 2025 10/03/2022, 07/20/2021, 06/23/2020, Additional history exists BMI (ht and wt on same day) for age 18+ 11/04/2025 11/04/2024, 10/15/2024, 07/19/2024, Additional history exists Depression screening for age 12+ 11/04/2025 11/04/2024, 10/07/2022, 10/05/2022, Additional history exists Medicare Wellness for age 65+ 11/05/2025, 10/03/2022, 08/03/2021, Additional history exists RSV vaccine for adults or (1 - 1-dose 75+ series) 2028 Lipids for age 45-75 10/15/2029 10/15/2024, 10/07/2022, 10/03/2022, Additional history exists Tetanus booster 04/07/2030 04/07/2020, 09/25, 10/11/2005 (Completed outside of [facility]), Additional history exists Tdap Completed 04/07/2020, 12/2016 (Completed outside of [facility]) Procedures Procedure Name Priority Date/Time Associated Diagnosis Comments SCAN-LABORATORY REPORT 01/02/2025 12:00 AM CDT ECHO TTE COMPLETE WO CONTRAST Routine 11/12/2024 11:43 AM STONE MILL OPERATOR SVT (supraventricular tachycardia) (HC) LIPID PANEL W REFLEX MEASURED LDL Routine 10/15/2024 10:05 AM STONE MILL OPERATOR SVT (supraventricular tachycardia) (HC) Hyperlipidemia, unspecified hyperlipidemia type SCAN-MAMMOGRAPHY REPORT 06/07/2022 12:00 AM CDT OCCULT BLOOD IFOBT STOOL Routine 07/18/2017 2:23 PM CDT Screening for colorectal cancer from Last 3 Months or Most Recently Relevant to Health Maintenance Results * SCAN-LABORATORY REPORT (01/02/2025 12:00 AM CDT) us Scanner OTHER Final Result * ECHO TTE COMPLETE WO CONTRAST (11/12/2024 11:43 AM STONE MILL OPERATOR) AORTIC VALVE MEAN PG 4 mmHg EJECTION FRACTION 65 % LVEDD 4.1 cm Anatomical Region Laterality Modality Ultrasound 11/12/2024 11:0 4 AM STONE MILL OPERATOR Narrative 11/12/2024 12:17 PM STONE MILL OPERATOR ECHOCARDIOGRAM BROOKE JOHNSON : 1955 69 years Study Date: 11/12/2024 11:04:37 AM Gender: F BP: 144/80 mmHg Height: 167.64 cm BSA: 1.61 m Weight: 54.43 kg Tech: STEPHAN Referring MD: DONNA POTTS CASE Site: [facility] Reading Location: Mobile OP Patient Location: Outpatient. Procedure: 2D, Color Doppler and Spectral Doppler. Indication for study: SVT Cardiac Rhythm: Regular.Study quality: Good. Final Impressions: 1. Normal left ventricular size, normal wall thickness, normal global systolic function, calculated EF of 65 %. 2. Right ventricular cavity size is normal, global systolic RV function is normal. 3. Normal left atrium size. 4. The aortic valve is normal and trileaflet, no stenosis and no regurgitation. 5. The mitral valve is normal, trace mitral regurgitation. 6. Tricuspid valve is normal. 7. No pericardial effusion. Chamber Sizes and Function Normal left ventricular size, normal wall thickness, normal global systolic function, calculated EF of 65 %. No resting regional wall motion abnormality visualized. Left atrial size is normal. Left atrial pressure is normal. Right ventricular cavity size is normal, global systolic RV function is normal. RV wall thickness is normal. The right atrium is normal. The pulmonary artery is of normal size and origin. The sinus of Valsalva is normal sized. The ascending aorta is normal sized. Valves, RV Pressures and Diastolic Function The aortic valve is normal in structure and trileaflet, no stenosis and no regurgitation. The mitral valve is normal in structure, trace mitral regurgitation. Normal diastolic function. The tricuspid valve is normal in structure. Tricuspid regurgitation is trace regurgitation. The pulmonic valve is normal. No pulmonary regurgitation. Masses, Effusion, Shunts There is no pericardial effusion. The inferior vena cava is normal sized, respiratory size variation greater than 50%. No left to right shunting was detected by limited color flow Doppler interrogation of the interatrial septum. MEASUREMENTS AND CALCULATIONS 2-D Measurements and LV Function: LVID (d) 4.1 cm Planimetered EF 65 % LVID (s) 2.6 cm LV FS% (2D) 36 % IVS (d) 0.8 cm LVOT diameter 2.2 cm LVPW (d) 0.8 cm HR 77 bpm Ao Sinus 3.0 cm LA Vol index 28 ml/m2 Asc Ao 3.7 cm RV Max 4C (d) 3.4 cm Diastology: Mitral Tissue Doppler E Peak 0.6 m/s e', Septum 0.06 m/s A Peak 0.6 m/s e', Lateral 0.09 m/s E/A 0.9 E/e' Average 7.67 DT 179 msec Aortic Valve: Vmax 1.2 m/s ÁNGELA (V) 3.35 cm VTI 0.27 m ÁNGELA (I) 3.08 cm LVOT V max 1.0 m/s Max PG 6 mmHg LVOT VTI 0.22 m Mean PG 4 mmHg SV 82 ml Dim Index 0.81 SV index 51 ml/m CO 6.4 l/min CI 3.9 l/min/m Mitral Valve: MVA 4.2 cm MV P 1/2 52 msec Tricuspid Valve and estimated PA pressures: TAPSE 2.8 cm . This study was interpreted by an [facility] accredited facility. Final Procedure Note Lety Garvey, [facility] - 11/12/2024 ECHOCARDIOGRAM BROOKE JOHNSON : 1955 69 years Study Date: 11/12/2024 11:04:37 AM Gender: F BP: 144/80 mmHg Height: 167.64 cm BSA: 1.61 m Weight: 54.43 kg Tech: MSR Referring MD: DONNA POTTS CASE Site: [facility] Reading Location: Mobile OP Patient Location: Outpatient. Procedure: 2D, Color Doppler and Spectral Doppler. Indication for study: SVT Cardiac Rhythm: Regular.Study quality: Good. Final Impressions: 1. Normal left ventricular size, normal wall thickness, normal globalsystolic function, calculated EF of 65 %. 2. Right ventricular cavity size is normal, global systolic RV functionis normal. 3. Normal left atrium size. 4. The aortic valve is normal and trileaflet, no stenosis and noregurgitation. 5. The mitral valve is normal, trace mitral regurgitation. 6. Tricuspid valve is normal. 7. No pericardial effusion. Chamber Sizes and Function Normal left ventricular size, normal wall thickness, normal globalsystolic function, calculated EF of 65 %. No resting regional wall motionabnormality visualized. Left atrial size is normal. Left atrial pressureis normal. Right ventricular cavity size is normal, global systolic RVfunction is normal. RV wall thickness is normal. The right atrium isnormal. The pulmonary artery is of normal size and origin. The sinus ofValsalva is normal sized. The ascending aorta is normal sized. Valves, RV Pressures and Diastolic Function The aortic valve is normal in structure and trileaflet, no stenosis and noregurgitation. The mitral valve is normal in structure, trace mitralregurgitation. Normal diastolic function. The tricuspid valve is normal instructure. Tricuspid regurgitation is trace regurgitation. The pulmonicvalve is normal. No pulmonary regurgitation. Masses, Effusion, Shunts There is no pericardial effusion. The inferior vena cava is normal sized,respiratory size variation greater than 50%. No left to right shunting wasdetected by limited color flow Doppler interrogation of the interatrialseptum. MEASUREMENTS AND CALCULATIONS 2-D Measurements and LV Function: LVID (d) 4.1 cm Planimetered EF 65 % LVID (s) 2.6 cm LV FS% (2D) 36 % IVS (d) 0.8 cm LVOT diameter 2.2 cm LVPW (d) 0.8 cm HR 77 bpm Ao Sinus 3.0 cm LA Vol index 28 ml/m2 Asc Ao 3.7 cm RV Max 4C (d) 3.4 cm Diastology: Mitral Tissue Doppler E Peak 0.6 m/s e', Septum 0.06 m/s A Peak 0.6 m/s e', Lateral 0.09 m/s E/A 0.9 E/e' Average 7.67 DT 179 msec Aortic Valve: Vmax 1.2 m/s ÁNGELA (V) 3.35 cm VTI 0.27 m ÁNGELA (I) 3.08 cm LVOT V max 1.0 m/s Max PG 6 mmHg LVOT VTI 0.22 m Mean PG 4 mmHg SV 82 ml Dim Index 0.81 SV index 51 ml/m CO 6.4 l/min CI 3.9 l/min/m Mitral Valve: MVA 4.2 cm MV P 1/2 52 msec Tricuspid Valve and estimated PA pressures: TAPSE 2.8 cm . This study was interpreted by an [facility] accredited facility. Final Donna ROMAN ECHO ORD Final Res ult * (ABNORMAL) LIPID PANEL W REFLEX MEASURED LDL (10/15/2024 10:05 AM STONE MILL OPERATOR) CHOLESTEROL, TOTAL 222(H) <200 mg/dL [facility] HDL CHOLESTEROL 98 > OR = 50 mg/dL [facility] TRIGLYCERIDES 135 <150 mg/dL [facility] LDL-CHOLESTEROL 101(H) mg/dL (calc) [facility] Comment: Reference range: <100 Desirable range <100 mg/dL for primary prevention; <70 mg/dL for patients with CHD or diabetic patients with > or = 2 CHD risk factors. LDL-C is now calculated using the Willie-Quinones calculation, which is a validated novel method providing better accuracy than the Friedewald equation in the estimation of LDL-C. Willie SS et al. BUSHRA. 2013;310(19): 1444-1012 (http://education.Apiphany/faq/FJH620) CHOL/HDLC RATIO 2.3 <5.0 (calc) [facility] NON HDL CHOLESTEROL 124 <130 mg/dL (calc) [facility] Comment: For patients with diabetes plus 1 major ASCVD risk factor, treating to a non-HDL-C goal of <100 mg/dL (LDL-C of <70 mg/dL) is considered a therapeutic option. Blood BLOOD SPECIMEN / Unknown 10/15/2024 10:05 AM STONE MILL OPERATOR 10/15/2024 10:09 AM STONE MILL OPERATOR Narrative [facility] - 10/16/2024 3:43 AM STONE MILL OPERATOR FASTING:NO FASTING: NO Donna ROMAN CHEMISTRY Final Res ult Performing Organization Address City/Va Hospital/ZIP Co de Phone Number [facility] [address] [place] [address], [place] [phone] [facility] [address] [place] [address] * SCAN-MAMMOGRAPHY REPORT (06/07/2022 12:00 AM CDT) Anatomical Region Laterality Modality Other us Scanner OTHER Final Result * OCCULT BLOOD IFOBT STOOL (07/18/2017 2:23 PM CDT) STOOL BLOOD ,IFOBT Negative Negative 07/21/2017 10:00 AM CDT [facility] Stool STOOL SPECIMEN / Unknown Non-Blood / Unknown 07/18/2017 2:23 PM CDT 07/20/2017 2:24 PM CDT Mono Garcia MD LABORATORY Final Result [facility] [address] [place] [address], from Last 3 Months or Most Recently Relevant to Health Maintenance Insurance [facility] MEDICARE ADVANTAGE MR Care Teams Box Office Agent Relationship Specialty [place] [address] [place] [address] PCP - General Family Practice 10/08/10
[2025-02-02 10:32] VITALS: BP 169/93; PULSE 88; RESP 16; TEMP 37.3; O2SAT 97; BMI 19.0
--- NOTE | 2025-02-02 11:14 | CRLHL7_ITS ---
For Patients: As a result of the Century Cures Act, medical imaging exams and procedure reports are released immediately into your electronic medical record. You may view this report before your referring provider. If you have questions, please contact your health care provider. INDICATION: Right-sided chest pain. Fatigue. TECHNIQUE: Chest 2 views. COMPARISON: None. FINDINGS: Cardiovascular and mediastinum: Heart size is normal. Unremarkable mediastinum. Lungs and pleural spaces: Lungs are clear. No sign of infiltrate or mass. No sign of pleural effusion. No pneumothorax. Bones and soft tissues: No significant findings. IMPRESSION: Negative chest. Dictated by Robe Ledesma MD @ 02/02/2025 11:59:31 AM (Electronically Signed)
--- NOTE | 2025-02-02 11:31 | ED.CHESTPAIN ---
HPI - Chest Pain General Date Seen: 02/02/25 Chief Complaint: Chest Pain Stated Complaint: Chest Discomfort Time Seen by Provider: 02/02/25 10:57 Source: patient Mode of arrival: ambulatory Limitations: no limitations History of Present Illness HPI narrative: Patient is a 69-year-old female presenting to the emergency department for chest pain. She noticed yesterday she describes some very mild dull 1/10 right sided chest pain roughly around the rib 4 region. Does not remember if she has ever had pain like this before but states it has been improving this not fully gone away as she was concerned and came in to be evaluated. She does have a history of ovarian cancer but is currently in remission and not on any treatment. Denies any associated shortness of breath. She initially thought it was related to indigestion after she had large fatty meal few hours prior to symptoms starting. She also noticed more indigestion this morning that has since gone away. If those symptoms more midline. Stated that felt like her typical GERD. No history of heart disease other than she does have intermittent SVT. Only medication she is currently on is diltiazem. Also takes potassium for chronically low potassium. No associated lightheadedness or dizziness. Denies abdominal pain, fevers, chills, headache, lightheadedness, dizziness, weakness, numbness. No other concerns noted at this time. Related Data Home Medications ?Medication ?Instructions ?Recorded ?Confirmed calcium carbonate (Calcium 600) 600 mg PO DAILY 06/19/22 02/02/25 diltiazem HCl 120 mg 120 mg PO BID 06/19/22 02/02/25 capsule,extended release 24 hr potassium chloride 20 mEq 20 meq PO DAILY 06/19/22 02/02/25 tablet,extended release Allergies Allergy/AdvReac Type Severity Reaction Status Date / Time cephalexin Allergy Unknown Shortness Verified 02/02/25 10:38 of Breath ciprofloxacin Allergy Unknown Verified 02/02/25 10:38 codeine Allergy Unknown Verified 02/02/25 10:38 nitrofurantoin (From Allergy Unknown Verified 02/02/25 10:38 Macrobid) diphenhydramine (From Allergy fast heart Verified 02/02/25 10:38 Benadryl) rate acetaminophen AdvReac Unknown Palpitation Verified 02/02/25 10:38 s levofloxacin (From Levaquin) AdvReac Unknown Nausea Verified 02/02/25 10:38 pseudoephedrine AdvReac Unknown Tachycardia Verified 02/02/25 10:38 sulfamethoxazole (From AdvReac Unknown Palpitation Verified 02/02/25 10:38 Septra) s trimethoprim (From Septra) AdvReac Unknown Palpitation Verified 02/02/25 10:38 s Review of Systems Status of ROS Reports: 10 or more systems reviewed and unremarkable except as noted in History and below PFSH PFSH Medical History Hypertension ?I10 - Essential (primary) hypertension (ICD-10) Hypokalemia ?E87.6 - Hypokalemia (ICD-10) Osteoporosis ?M81.0 - Age-related osteoporosis without current pathological fracture (ICD-10) Anxiety ?F41.9 - Anxiety disorder, unspecified (ICD-10) Psoriasis ?L40.9 - Psoriasis, unspecified (ICD-10) SVT (supraventricular tachycardia) ?I47.1 - Supraventricular tachycardia (ICD-10) Surgical History History of salpingo-oophorectomy ?Z90.79 - Acquired absence of other genital organ(s) (ICD-10) ?Z90.721 - Acquired absence of ovaries, unilateral (ICD-10) Family History Other Alzheimer's dementia Coronary artery disease High blood pressure High cholesterol Hypokalemia Social History Smoking Status: Former smoker What tobacco products do you use: cigarettes Smoking quit date/years: >15 years ago How often do you have a drink containing alcohol: monthly or less How often do you have six or more drinks on one occasion: Never AUDIT-C Alcohol total score: 1 Non-prescribed substance use: denies use Exam Narrative Exam Narrative: Const: Well-nourished, Well-developed, in no distress Eyes: PERRL, no conjunctival injection, and symmetrical lids HENT: Atraumatic external nose and ears. Moist mucous membranes. Neck: Symmetric, trachea midline, No thyromegaly. CVS: RRR, No murmurs or gallops. Peripheral pulses 2+ and equal in all extremities RESP: Unlabored respiratory effort. Clear to auscultation bilaterally. GI: Nontender/Nondistended, No rebound or guarding. MSK:Extremities w/o deformity, Normal Active ROM, no tenderness to palpation of chest Skin: Warm, Dry. No rashes or lesions. Neuro: Normal Muscle tone, No focal neurological deficits. Psych: Awake, Alert, & Oriented x3. Appropriate mood and affect. Const Vital Signs, click to edit/add: Vital Signs - 24 hr 02/02/25 10:32 02/02/25 11:32 02/02/25 12:01 Temperature 99.1 F Pulse Rate 76 71 Pulse Rate [Pulse Oximeter] 88 Respiratory Rate 16 15 14 Blood Pressure 171/95 H 141/87 H Blood Pressure [Right Upper Arm] 169/93 H Pulse Oximetry 97 97 97 Oxygen Delivery Method Room Air Course Vital Signs Vital signs: Initial Vital Signs Temperature 99.1 F 02/02/25 10:32 Temperature Source Temporal Artery Scan 02/02/25 10:32 Pulse Rate 88 02/02/25 10:32 Pulse Rhythm Regular 02/02/25 10:32 Respiratory Rate 16 02/02/25 10:32 Blood Pressure 169/93 H 02/02/25 10:32 Blood Pressure Mean 118 H 02/02/25 10:32 Blood Pressure Position Sitting 02/02/25 10:32 Pulse Oximetry 97 02/02/25 10:32 Oxygen Delivery Method Room Air 02/02/25 10:32 Vital Signs Temperature 99.1 F 02/02/25 10:32 Pulse Rate 88 02/02/25 10:32 Respiratory Rate 16 02/02/25 10:32 Blood Pressure 169/93 H 02/02/25 10:32 Pulse Oximetry 97 02/02/25 10:32 Oxygen Delivery Method Room Air 02/02/25 10:32 Temperature 99.1 F 02/02/25 10:32 Pulse Rate 71 02/02/25 12:01 Respiratory Rate 14 02/02/25 12:01 Blood Pressure 141/87 H 02/02/25 12:01 Pulse Oximetry 97 02/02/25 12:01 Oxygen Delivery Method Room Air 02/02/25 10:32 MDM - Chest Pain MDM Narrative Medical decision making narrative: Patient is 69-year-old female presenting for chest pain. The differential diagnosis of chest pain is broad and includes common etiologies such as musculoskeletal strain, GERD, pneumonia, etc. More serious etiologies considered include PE, coronary artery disease, pneumothorax, aortic dissection, aortic aneurysm. Were ordered chest x-ray look for signs pneumonia or pneumothorax. EKG and troponin ordered to look for signs of coronary artery disease or other cardiac abnormalities. Will do a D-dimer to look for signs of PE. She is otherwise stable my concern for aortic dissection or aortic aneurysm is low. Also order a BMP, CBC, COVID/flu/RSV, magnesium. Lab work returned showing no acute concerning abnormalities. D-dimer within normal limits. Troponin within normal limits. EKG shows no concerning findings. Concerning the symptoms I do not believe repeat troponin is necessary. Chest x-ray reviewed by myself the radiologist shows no acute concerning abnormalities. She is doing well at this time. 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 This could be causing a muscle ache and thus her symptoms. She will be discharged. She is agreeable to this plan Lab Data Labs: Lab Results 02/02/25 02/02/25 Range/Units 11:27 11:30 WBC 6.63 (4.50-11.00) K/uL RBC 5.15 (4.00-5.20) m/uL Hgb 14.7 (12.0-16.0) gm/dL Hct 45.0 (33.0-51.0) % MCV 87 (80-100) fL MCH 29 (26-34) pg MCHC 33 (32-36) gm/dL RDW Coeff of Jeny 13.1 (11.5-15.5) % Plt Count 329 (140-440) K/uL Neut % (Auto) 75.6 H (42.0-72.0) % Lymph % (Auto) 14.5 L (20-44) % [place] % (Auto) 8.1 (0.0-11.0) % Eos % (Auto) 0.9 (0.0-7.0) % Baso % (Auto) 0.6 (0.0-3.0) % Neut # (Auto) 5.00 (1.7-7.0) K/uL Lymph # (Auto) 1.00 (0.90-2.90) K/uL [place] # (Auto) 0.50 (0.00-0.90) K/UL Eos # (Auto) 0.06 (0.00-0.50) K/uL Baso # (Auto) 0.04 (0.00-0.30) K/uL Abs Immat Gran (auto) 0.02 (0.00-0.30) K/uL Imm/Tot Granulo (auto) 0.3 % D-Dimer Quant (PE/DVT) 0.44 (0.00-0.50) ug/ml Sodium 139 (135-149) mmol/L Potassium 3.5 L (3.6-5.1) mmol/L Chloride 100 (96-114) mmol/L Carbon Dioxide 29 (20-32) mmol/L Anion Gap 10 (7-15) mEq/L BUN 15 (7-30) mg/dL Creatinine 0.7 (0.5-1.5) mg/dL Estimated Creat Clear 43.60 Estimated GFR 92 ml/min Glucose 99 (60-115) mg/dL Calcium 9.7 (8.4-10.6) mg/dL Magnesium 2.2 (1.5-2.6) mg/dL Troponin I < 0.01 (0.01-0.04) ng/mL SARS-CoV-2 (PCR) Negative SARS-CoV-2 (Negative) Influenza Type A (PCR) Negative PCR FLU A (Negative) Influenza Type B (PCR) Negative PCR FLU B (Negative) RSV (PCR) Negative PCR RSV (Negative) Imaging Data Chest x-ray: Attestation: I have reviewed the pertinent imaging results. Radiologist's impression: Negative chest. Dictated by Robe Ledesma MD @ 02/02/2025 11:59:31 AM ECG Data Attestation: I personally reviewed and interpreted this ECG as follows: Prior ECG tracings: not available for review Interpretation: Normal sinus rhythm with a rate of 85 beats per minute, normal intervals, rightward axis, no ST or T-wave abnormalities. Discharge Plan Discharge Clinical Impression: Atypical chest pain Patient Disposition: Home, Self-Care Condition: Stable Instructions: Noncardiac Chest Pain (ED) Additional Instructions: I cannot say for certain what is causing your pain but I do not see any acute concerning abnormalities. It could be related to muscle strain from the pickle ball but if it persists you can follow up with your primary care provider. Return for new worsening symptoms Prescriptions: No Action diltiazem HCl 120 mg capsule,extended release 24hr 120 mg PO BID Patient Comments: TAKE 1 CAPSULE (120 MG) BY MOUTH 2 TIMES DAILY. potassium chloride 20 mEq tablet extended release 20 meq PO DAILY Patient Comments: TAKE 1 TABLET (20 MEQ) BY MOUTH ONCE DAILY WITH A MEAL. calcium carbonate [Calcium 600] 600 mg calcium (1,500 mg) tablet 600 mg PO DAILY Follow Up/Referrals: Cr Bonilla MD [Primary Care Provider] - Stand Alone Forms: [employer] Info Instructions
[2025-02-02 11:32] VITALS: BP 171/95; PULSE 76; RESP 15; O2SAT 97
[2025-02-02 11:46] LABS: Basophils Absolute Auto 0.04 K/uL (0.00-0.30); Basophils Percent Auto 0.6 % (0.0-3.0); Eosinophils Absolute Auto 0.06 K/uL (0.00-0.50); Eosinophils Percent Auto 0.9 % (0.0-7.0); Hemoglobin* 14.7 gm/dL (12.0-16.0); Immature Granulocytes Abs Auto 0.02 K/uL (0.00-0.30); Immature Granulocytes Pct Auto 0.3 %; Lymphocytes Percent Auto 14.5 % (20-44); Mean Corpuscular HGB Conc 33 gm/dL (32-36); Mean Corpuscular Hemoglobin 29 pg (26-34); Mean Corpuscular Volume 87 fL (80-100); Monocytes Percent Auto 8.1 % (0.0-11.0); Neutrophils Percent Auto 75.6 % (42.0-72.0); Platelet Count* 329 K/uL (140-440); RDW Coefficient of Variation % 13.1 % (11.5-15.5); Red Blood Count 5.15 m/uL (4.00-5.20); White Blood Count* 6.63 K/uL (4.50-11.00)
[2025-02-02 12:00] LABS: Slide Review Reflex No
[2025-02-02 12:01] VITALS: BP 141/87; PULSE 71; RESP 14; O2SAT 97
[2025-02-02 12:03] LABS: Chloride* 100 mmol/L (96-114)
[2025-02-02 12:04] LABS: Potassium* 3.5 mmol/L (3.6-5.1); Sodium* 139 mmol/L (135-149)
[2025-02-02 12:07] LABS: Anion Gap 10 mEq/L (7-15); Blood Urea Nitrogen* 15 mg/dL (7-30); Calcium* 9.7 mg/dL (8.4-10.6); Carbon Dioxide* 29 mmol/L (20-32); Creatinine* 0.7 mg/dL (0.5-1.5); Estimated Glomerular Filt Rate 92 ml/min; Glucose* 99 mg/dL (60-115); Magnesium* 2.2 mg/dL (1.5-2.6)
[2025-02-02 12:07] LABS: PCR FLU A Negative PCR FLU A (Negative); PCR FLU B Negative PCR FLU B (Negative); PCR RSV Negative PCR RSV (Negative); SARS PCR* Negative SARS-CoV-2 (Negative)
[2025-02-02 12:08] LABS: D Dimer Quantitative* 0.44 ug/ml (0.00-0.50)
[2025-02-02 12:21] LABS: Troponin I* < 0.01 ng/mL (0.01-0.04)
== END 2025-02-02 13:04 | disposition home or self-care (01) ==
PROVIDERS: Emergency Provider Student in an Organized Health Care Education/Training Program; PCP Family Medicine
DX: R07.9 Chest pain, unspecified (principal)
CPT/HCPCS: 36415; 71046; 80048; 83735; 84484; 85025; 85379; 87631; 93005; 99284; 99285